=== PATIENT | male | born 1985 | race Caucasian/White ===

== ENCOUNTER 2016-09-12 17:51 | Inpatient (IN) | payer SELFPAY ==
--- NOTE | 2016-09-12 18:15 | EDM.PDOC ---
ED HPI Behavioral Health - General Chief Complaint: Behavioral/Psych Stated Complaint: Suicide attempt Time Seen by Provider: 09/12/16 18:05 Source of Information: Reports: Patient, Police, RN notes reviewed Exam Limitations: Reports: No limitations - History of Present Illness INITIAL COMMENTS - FREE TEXT/NARRATIVE: 30 year old male presents to the ED today via [place] [employer] after a suicide attempt about 3 hours ago. The patient reports that he has been struggling financially which has caused him a lot of stress. He has been depressed and today attempted to kill himself. He attempted to hang himself with an extension cord. He was unsuccessful because the extension cord broke. He denies any loss of consciousness as a result. He denies neck pain, difficulty swallowing, difficulty breathing, sore throat, headache. He has a red area to his neck but says it's not painful. He says during the attempt, he was thinking about his parents. After the cord broke, he decided to call his parents. His parents then notified law enforcement. They responded and brought him to the ED. The patient' s parents live in [facility]. According to the patient, he feels better after talking with his parents and says he is no longer a risk to himself. He says his parents are going to help move him back to [place] and will be here within the next week or two. They have also offered to help him financially which has alleviated some stress already. The patient admits to drinking a fifth of vodka today. He denies drug use. - Related Data Allergies Allergy/AdvReac Type Severity Reaction Status Date / Time No Known Allergies Allergy Verified 09/12/16 20:47 Home Medications: Home Meds Ibuprofen. 09/12/16 [History] Past Medical History - Past Health History Medical/Surgical History: Denies Medical/Surgical History Social & Family History - Tobacco Use Smoking Status *Q: Current Every Day Smoker Years of Tobacco use: 10 Packs/Tins Daily: 0.5 - Recreational Drug Use Recreational Drug Use: No ED ROS GENERAL - Review of Systems Review Of Systems: See Below Constitutional: Reports: no symptoms. Denies: fever, chills HEENT: Denies: Throat pain, Throat swelling Respiratory: Reports: No Symptoms, Other (no stridor ). Denies: Shortness of Breath, Cough Cardiovascular: Reports: No symptoms. Denies: Chest pain GI/Abdominal: Reports: No symptoms. Denies: Abdominal pain Neurological: Reports: No Symptoms. Denies: Headache Psychiatric: Reports: Depression, Suicidal ideation ED EXAM, BEHAVIORAL HEALTH - Physical Exam Exam: See Below Exam Limited By: No limitations General Appearance: alert, WD/WN, no apparent distress, other (Smells of ETOH) Eye Exam: bilateral eye: EOMI, PERRL Throat/Mouth: Normal inspection, Normal oropharynx, No airway compromise. No: Dysphagia, Inflammation, Perioral cyanosis Head: atraumatic, normocephalic Neck: supple, non-tender, full range of motion, other (red area to neck consistent with history of hanging attempt. No swelling. Minimal tenderness). No: lymphadenopathy (L), lymphadenopathy (R) Respiratory/Chest: no respiratory distress, lungs clear, normal breath sounds Cardiovascular: regular rate, rhythm Neurological: alert, normal mood/affect, normal cognition, oriented x 3 Psychiatric: alert, normal affect, normal cognition, oriented, depressed mood, suicidal plan, suicidal thoughts, other (patient is calm, cooperative, somewhat tearful, makes good eye contact. he articulates well and seems to be honest with his answers. ). No: threatening behavior COURSE, BEHAVIORAL HEALTH COMP - Course Vital Signs: Last Vital Signs Temp 97.8 F 09/12/16 18:02 Pulse 100 09/12/16 18:02 Resp BP 160/99 H 09/12/16 18:02 Pulse Ox 99 09/12/16 18:02 Orders, Labs, Meds: Active Orders 24 hr Category Date Time Status Patient Status [ADT] Routine ADT 09/12/16 19:44 Ordered Antiembolic Devices [RC] PER UNIT ROUTINE Care 09/12/16 20:42 Active Bedrest Bathroom Privileges [RC] ASDIRECTED Care 09/12/16 20:37 Active Notify Provider Consults [RC] ASDIRECTED Care 09/12/16 20:42 Active Peripheral IV Care [RC] . DIRECTED Care 09/12/16 19:47 Ordered Vital Signs [RC] PER UNIT ROUTINE Care 09/12/16 20:36 Active Consult to Physical Therapy [PT Evaluation and Cons 09/13/16 10:00 Active Treatment] [CONS] Routine Consult to Physician [CONS] Routine Cons 09/13/16 06:00 Active Consult to Purchasing Intern [CONS] Routine Cons 09/13/16 09:00 Active Regular Diet [DIET] Diet 09/12/16 Dinner Active Soft Tissue Neck w Cont [CT] Stat Exams 09/12/16 19:46 Ordered BMP [BASIC METABOLIC PANEL,BMP] [CHEM] DAILY Lab 09/13/16 05:00 Ordered BMP [BASIC METABOLIC PANEL,BMP] [CHEM] DAILY Lab 09/14/16 05:00 Ordered BMP [BASIC METABOLIC PANEL,BMP] [CHEM] DAILY Lab 09/15/16 05:00 Ordered CBC WITH AUTO DIFF [HEME] DAILY Lab 09/13/16 05:00 Ordered CBC WITH AUTO DIFF [HEME] DAILY Lab 09/14/16 05:00 Ordered CBC WITH AUTO DIFF [HEME] DAILY Lab 09/15/16 05:00 Ordered DRUG SCREEN, URINE [URCHEM] Stat Lab 09/12/16 18:14 Uncollected LIPID PANEL [CHEM] Routine Lab 09/13/16 05:00 Ordered MAGNESIUM [CHEM] DAILY Lab 09/13/16 05:00 Ordered MAGNESIUM [CHEM] DAILY Lab 09/14/16 05:00 Ordered MAGNESIUM [CHEM] DAILY Lab 09/15/16 05:00 Ordered UA W/MICROSCOPIC [URIN] Stat Lab 09/12/16 18:14 Uncollected Acetaminophen [Tylenol Solution] Med 09/12/16 20:52 Active 650 mg PO Q6H PRN Ketorolac [Toradol] Med 09/12/16 20:45 Ordered 30 mg IVPUSH Q6H Ketorolac [Toradol] Med 09/12/16 20:40 Pending 60 mg IVPUSH ONETIME ONE LORazepam [Ativan] Med 09/12/16 20:43 Active 1 mg IVPUSH Q8H PRN Lactated Ringers [Ringers, Lactated] 1,000 ml Med 09/12/16 20:45 Active IV ASDIRECTED Nicotine [Habitrol] Med 09/13/16 09:00 Active 21 mg TRDERM DAILY Pantoprazole [ProTONIX] Med 09/12/16 21:00 Active 40 mg PO BEDTIME Remove Patch Med 09/13/16 09:00 Active 1 ea TRDERM DAILY Sodium Chloride 0.9% [Saline Flush] Med 09/12/16 19:46 Ordered 10 ml FLUSH ASDIRECTED PRN Sodium Chloride 0.9% [Saline Flush] Med 09/12/16 19:51 Active 10 ml FLUSH ONETIME PRN Temazepam [Restoril] Med 09/12/16 20:42 Active 15 mg PO BEDTIME PRN methylPREDNISolone Sod Succ [Solu-MEDROL] Med 09/12/16 21:00 Active 125 mg IVPUSH Q12H One To One Therapy [] Routine Oth 09/12/16 20:51 Ordered Peripheral IV Insertion Adult [OM.PC] Stat Ot 09/12/16 19:46 Ordered Suicide Precautions [] Routine Oth 09/12/16 20:51 Ordered RADHA Hose [Antiembolic Hose] [OM.PC] Routine Oth 09/12/16 20:42 Ordered Code Status [Resuscitation Status] Routine Resus Stat 09/12/16 20:37 Ordered Medication Orders Acetaminophen (Tylenol Solution) 650 mg PO Q6H PRN PRN Reason: Pain (moderate 4-6) Lactated Ringer's (Ringers, Lactated) 1,000 mls @ 150 mls/hr IV ASDIRECTED FRANKLYN Ketorolac Tromethamine (Toradol) 60 mg IVPUSH ONETIME ONE Stop: 09/12/16 20:41 Ketorolac Tromethamine (Toradol) 30 mg IVPUSH Q6H FRANKLYN Lorazepam (Ativan) 1 mg IVPUSH Q8H PRN PRN Reason: Anxiety Methylprednisolone Sodium Succinate (Solu-Medrol) 125 mg IVPUSH Q12H FRANKLYN Miscellaneous Information (Remove Patch) 1 ea TRDERM DAILY FRANKLYN Nicotine (Habitrol) 21 mg TRDERM DAILY FRANKLYN Pantoprazole Sodium (Protonix) 40 mg PO BEDTIME FRANKLYN Sodium Chloride (Saline Flush) 10 ml FLUSH ASDIRECTED PRN PRN Reason: Keep Vein Open Last Admin: 09/12/16 20:18 Dose: 10 ml Sodium Chloride (Saline Flush) 10 ml FLUSH ONETIME PRN PRN Reason: IV FLUSH Last Admin: 09/12/16 20:09 Dose: 10 ml Temazepam (Restoril) 15 mg PO BEDTIME PRN PRN Reason: Insomnia Laboratory Tests 09/12/16 09/12/16 Range/Units 18:42 18:42 WBC 7.51 (4.23-9.07) K/mm3 RBC 4.48 L (4.63-6.08) M/mm3 Hgb 14.6 (13.7-17.5) gm/L Hct 44.2 (40.1-51.0) % MCV 98.7 H (79.0-92.2) fl MCH 32.6 H (25.7-32.2) pg MCHC 33.0 (32.2-35.5) g/dl RDW Std Deviation 49.1 H (35.1-43.9) fL Plt Count 320 (163-337) K/mm3 MPV 8.1 L (9.4-12.3) fl Neut % (Auto) 82.6 H (34.0-67.9) % Lymph % (Auto) 11.7 L (21.8-53.1) % [place] % (Auto) 4.0 L (5.3-12.2) % Eos % (Auto) 1.2 (0.8-7.0) Baso % (Auto) 0.4 (0.1-1.2) % Neut # (Auto) 6.20 H (1.78-5.38) K/mm3 Lymph # (Auto) 0.88 L (1.32-3.57) K/mm3 [place] # (Auto) 0.30 (0.30-0.82) K/mm3 Eos # (Auto) 0.09 (0.04-0.54) K/mm3 Baso # (Auto) 0.03 (0.01-0.08) K/mm3 Sodium 145 (136-145) mEq/L Potassium 4.0 (3.5-5.1) mEq/L Chloride 103 (98-107) mEq/L Carbon Dioxide 28 (21-32) mEq/L Anion Gap 18.0 H (5-15) BUN 12 (7-18) mg/dL Creatinine 1.0 (0.7-1.3) mg/dL Est Cr Clr Drug Dosing 119.85 mL/min Estimated GFR (MDRD) > 60 (>60) mL/min BUN/Creatinine Ratio 12.0 L (14-18) Glucose 134 H (74-106) mg/dL Calcium 8.8 (8.5-10.1) mg/dL Total Bilirubin 0.4 (0.2-1.0) mg/dL AST 52 H (15-37) U/L ALT 65 H (16-63) U/L Alkaline Phosphatase 62 (46-116) U/L Total Protein 8.1 (6.4-8.2) g/dl Albumin 4.6 (3.4-5.0) g/dl Globulin 3.5 gm/dL Albumin/Globulin Ratio 1.3 (1-2) TSH 3rd Generation 0.560 (0.358-3.74) uIU/mL Ethyl Alcohol 0.22 (0.00) gm% Medications Generic Name Dose Route Start Last Admin Trade Name Freq PRN Reason Stop Dose Admin Acetaminophen 650 mg 09/12/16 20:52 Tylenol Solution PO Q6H PRN Pain (moderate 4-6) Lactated Ringer's 1,000 mls @ 150 mls/hr 09/12/16 20:45 Ringers, Lactated IV ASDIRECTED FRANKLYN Ketorolac Tromethamine 60 mg 09/12/16 20:40 Toradol IVPUSH 09/12/16 20:41 ONETIME ONE Ketorolac Tromethamine 30 mg 09/12/16 20:45 Toradol IVPUSH Q6H FRANKLYN Lorazepam 1 mg 09/12/16 20:43 Ativan IVPUSH Q8H PRN Anxiety Methylprednisolone Sodium Succinate 125 mg 09/12/16 21:00 Solu-Medrol IVPUSH Q12H [facility] Miscellaneous Information 1 ea 09/13/16 09:00 Remove Patch TRDERM DAILY FRANKLYN Nicotine 21 mg 09/13/16 09:00 Habitrol TRDERM DAILY FRANKLYN Pantoprazole Sodium 40 mg 09/12/16 21:00 Protonix PO BEDTIME FRANKLYN Sodium Chloride 10 ml 09/12/16 19:46 09/12/16 20:18 Saline Flush FLUSH 10 ml ASDIRECTED PRN Administration Keep Vein Open Sodium Chloride 10 ml 09/12/16 19:51 09/12/16 20:09 Saline Flush FLUSH 10 ml ONETIME PRN Administration IV FLUSH Temazepam 15 mg 09/12/16 20:42 Restoril PO BEDTIME PRN Insomnia Discontinued Medications Generic Name Dose Route Start Last Admin Trade Name Freq PRN Reason Stop Dose Admin Iopamidol 80 ml 09/12/16 19:51 09/12/16 20:09 Isovue-300 (61%) IVPUSH 09/12/16 19:52 80 ml ONETIME ONE Administration Nicotine 14 mg 09/12/16 20:01 09/12/16 20:17 Habitrol TRDERM 09/12/16 20:02 14 mg ONETIME ONE Administration Re-Assessment/Re-Exam: Calls have been placed to [facility], [facility], [facility] and [facility] facilities. There are no psych beds available in the [facility]. I consulted our telemed Psychiatrist Dr. Tran. We discussed the patient's case, lack of support system, and disposition concerns since there are no psych beds. Dr. Tran recommends that we admit the patient here and he will see him via telemedicine tomorrow. He recommended observation admission. He recommended that we place the patient on an involuntary hold if the patient is noncompliant with this or attempts to leave the facility. He also recommends ETOH withdrawal protocol. The patient was made aware of this plan. I explained involuntary versus voluntary psych admissions. He is agreeable to stay in the hospital. He understands that noncompliance with result in an involuntary hold to ensure his safety. He is calm, cooperative, and agreeable. I spoke to Hospitalist semiconductor manufacturing technician Dr. Rubalcava who has accepted care of the patient. He will be admitted as inpatient as he meets criteria. 1940 Patient is reporting a numb sensation to the left side of his neck and discomfort with swallowing. He has no stridor or evidence of airway obstruction. Discussed with Dr. Peng who recommends CT soft tissue neck with IV contrast. 2100 CT of soft tissue neck read by [facility]. No acute findings. Will relay this information to the ICU as patient has been transferred out of the ED department. Departure - Departure Time of Disposition: 20:30 Disposition: Admitted As Inpatient 64 Condition: fair Clinical Impression: Suicide attempt Referrals: PCP,None [Primary Care Provider] - Forms: ED Department Discharge - My Orders Last 24 Hours: My Active Orders 09/12/16 18:14 DRUG SCREEN, URINE [URCHEM] Stat UA W/MICROSCOPIC [URIN] Stat 09/12/16 19:44 Patient Status [ADT] Routine 09/12/16 19:46 Soft Tissue Neck w Cont [CT] Stat Sodium Chloride 0.9% [Saline Flush] 10 ml FLUSH ASDIRECTED PRN Peripheral IV Insertion Adult [OM.PC] Stat 09/12/16 19:47 Peripheral IV Care [RC] . DIRECTED 09/12/16 19:51 Sodium Chloride 0.9% [Saline Flush] 10 ml FLUSH ONETIME PRN - Assessment/Plan Last 24 Hours: My Active Orders 09/12/16 18:14 DRUG SCREEN, URINE [URCHEM] Stat UA W/MICROSCOPIC [URIN] Stat 09/12/16 19:44 Patient Status [ADT] Routine 09/12/16 19:46 Soft Tissue Neck w Cont [CT] Stat Sodium Chloride 0.9% [Saline Flush] 10 ml FLUSH ASDIRECTED PRN Peripheral IV Insertion Adult [OM.PC] Stat 09/12/16 19:47 Peripheral IV Care [RC] . DIRECTED 09/12/16 19:51 Sodium Chloride 0.9% [Saline Flush] 10 ml FLUSH ONETIME PRN
[2016-09-12] MEDS ORDERED: Iopamidol 612 MG/ML 100 ML Bottle IVPUSH ONE (19:51)
[2016-09-12] MEDS ORDERED: Sodium Chloride 0.9% 10 ML Syringe FLUSH PRN (19:51)
[2016-09-12] MEDS ORDERED: Nicotine 14 MG/24 Hr Patch TRDERM ONE (20:01)
[2016-09-12] MEDS: Sodium Chloride 0.9% 10 ML Syringe FLUSH PRN (20:18)
--- NOTE | 2016-09-12 20:47 | PCM.HP ---
H&P History of Present Illness - General Date of Service: 09/12/16 Admit Problem/Dx: Admission Diagnosis/Problem Admission Diagnosis/Problem Suicide by drug overdose Source of Information: Patient, Provider History Limitations: Reports: No limitations - History of Present Illness Initial Comments - Free Text/Narative: 30 year old male who currently lives alone, presented after a failed suicide attempt. The patient tried to hang himself with an extension cord. There is no prior history of mental illness. There was no LOC, a CT of the neck appears to have no gross abnormalities; the patient however is complaining of a sore neck. He will be admitted for psychiatric treatment/monitoring, there are no available beds in [place] for psychiatric patients. An alcohol and drug screen were requested, and are pending. The patient has been admitted to the ICU as 1:1 monitored care. Onset of Symptoms: Reports: sudden Symptom Onset Date: 09/12/16 Duration of Symptoms: Reports: Hour(s):, Getting worse Location: Reports: neck Quality: Reports: Pressure Severity: moderate Improves with: Reports: Medication Worsens with: Reports: None Associated Symptoms: Reports: no other symptoms - Related Data Allergies/Adverse Reactions: Allergies Allergy/AdvReac Type Severity Reaction Status Date / Time No Known Allergies Allergy Verified 09/12/16 20:47 Home Medications: Home Meds Ibuprofen. 09/12/16 [History] Past Medical History - Past Health History Medical/Surgical History: Denies Medical/Surgical History Social & Family History - Tobacco Use Smoking Status *Q: Current Every Day Smoker Years of Tobacco use: 10 Packs/Tins Daily: 0.5 - Recreational Drug Use Recreational Drug Use: No H&P Review of Systems - Review of Systems: Review Of Systems: See Below General: Reports: no symptoms HEENT: Reports: dysphasia (mild). Denies: no symptoms Pulmonary: Reports: No Symptoms Cardiovascular: Reports: no symptoms Gastrointestinal: Reports: No symptoms Genitourinary: Reports: no symptoms Musculoskeletal: Reports: neck pain Skin: Reports: no symptoms Psychiatric: Reports: depression, anxiety Neurological: Reports: No Symptoms Hematologic/Lymphatic: Reports: no symptoms Immunologic: Reports: no symptoms Exam - Exam Exam: See Below - Vital Signs Vital Signs: Last Vital Signs Temp 36.6 C 09/12/16 18:02 Pulse 100 09/12/16 18:02 Resp BP 160/99 H 09/12/16 18:02 Pulse Ox 99 09/12/16 18:02 Weight: 81.647 kg - Exam Quality Assessment: supplemental oxygen, DVT prophylaxis General: alert, oriented, cooperative HEENT: Conjunctiva clear, Nares patent, Normal nasal septum, Pupils equal, Pupils reactive, TMs clear Neck: supple, trachea midline Lungs: Normal respiratory effort Cardiovascular: regular rate, tachycardia Abdomen: normal bowel sounds, soft (Male) Exam: Deferred Rectal (Males) Exam: Deferred Back Exam: normal inspection Extremities: normal inspection Skin: warm Neurological: cranial nerves intact Neuro Extensive - Mental Status: alert, oriented x3 Neuro Extensive - Motor, Sensory, Reflexes: CN II-XII intact Psychiatric: alert, depressed - Patient Data Result Diagrams: 09/13/16 05:43 09/13/16 05:43 *Q Meaningful Use (ADM) - VTE *Q VTE Criteria *Q: - Stroke *Q Stroke Criteria *Q: - AMI *Q AMI Criteria *Q: - Problem List (1) Depression SNOMED Code(s): 13162779 ICD Code: F32.9 - MAJOR DEPRESSIVE DISORDER, SINGLE EPISODE, UNSPECIFIED Status: Acute Current Visit: Yes (2) Anxiety SNOMED Code(s): 68000972 ICD Code: F41.9 - ANXIETY DISORDER, UNSPECIFIED Status: Acute Current Visit: Yes (3) EtOH dependence SNOMED Code(s): 78900760, 539854622 ICD Code: F10.20 - ALCOHOL DEPENDENCE, UNCOMPLICATED Status: Acute Current Visit: Yes (4) Suicide attempt SNOMED Code(s): 33910389 ICD Code: T14.91 - SUICIDE ATTEMPT Status: Acute Current Visit: Yes Problem List Initiated/Reviewed/Updated: Yes Orders Last 24hrs: Active Orders 24 hr Category Date Time Status Antiembolic Devices [RC] PER UNIT ROUTINE Care 09/12/16 20:42 Ordered Bedrest Bathroom Privileges [RC] ASDIRECTED Care 09/12/16 20:37 Ordered Notify Provider Consults [RC] ASDIRECTED Care 09/12/16 20:42 Ordered Peripheral IV Care [RC] . DIRECTED Care 09/12/16 19:47 Active Vital Signs [RC] PER UNIT ROUTINE Care 09/12/16 20:36 Ordered Consult to Physical Therapy [PT Evaluation and Cons 09/13/16 10:00 Ordered Treatment] [CONS] Routine Consult to Physician [CONS] Routine Cons 09/13/16 06:00 Ordered Consult to Social Science Manager [CONS] Routine Cons 09/13/16 09:00 Ordered Soft Tissue Neck w Cont [CT] Stat Exams 09/12/16 19:46 Taken Ketorolac [Toradol] Med 09/12/16 20:45 Ordered 30 mg IVPUSH Q6H Ketorolac [Toradol] Med 09/12/16 20:40 Once 60 mg IVPUSH ONETIME ONE LORazepam [Ativan] Med 09/12/16 20:43 Ordered 1 mg IVPUSH Q8H PRN Lactated Ringers @ 100 MLS/HR(1000ml Bag) Med 09/12/16 20:45 Ordered Lactated Ringers [Ringers, Lactated] 1,000 ml IV ASDIRECTED Nicotine [Habitrol] Med 09/13/16 09:00 Ordered 21 mg TRDERM DAILY Pantoprazole [ProTONIX] Med 09/12/16 21:00 Ordered 40 mg PO BEDTIME Sodium Chloride 0.9% [Saline Flush] Med 09/12/16 19:46 Active 10 ml FLUSH ASDIRECTED PRN Sodium Chloride 0.9% [Saline Flush] Med 09/12/16 19:51 Active 10 ml FLUSH ONETIME PRN Temazepam [Restoril] Med 09/12/16 20:42 Ordered 15 mg PO BEDTIME PRN methylPREDNISolone Sod Succ [Solu-MEDROL] Med 09/12/16 20:45 Ordered 125 mg IVPUSH Q12H Peripheral IV Insertion Adult [OM.PC] Stat Oth 09/12/16 19:46 Ordered RADHA Hose [Antiembolic Hose] [OM.PC] Routine Oth 09/12/16 20:42 Ordered Code Status [Resuscitation Status] Routine Resus Stat 09/12/16 20:37 Ordered Medication Orders Ketorolac Tromethamine (Toradol) 60 mg IVPUSH ONETIME ONE Stop: 09/12/16 20:41 Sodium Chloride (Saline Flush) 10 ml FLUSH ASDIRECTED PRN PRN Reason: Keep Vein Open Last Admin: 09/12/16 20:18 Dose: 10 ml Sodium Chloride (Saline Flush) 10 ml FLUSH ONETIME PRN PRN Reason: IV FLUSH Last Admin: 09/12/16 20:09 Dose: 10 ml Assessment/Plan Comment:: Impression: Depression/Anxiety Suicide attempt, unsuccessful hanging without LOC CT of neck without signs of trauma Hypertension currently, probable ETOH withdrawal Tobacco dependence Plan: ICU with close monitoring Start Norvacs q HS Hydralazine prn CIWA protocol HTN meds as needed Habitrol Psych consult Substance Abuse Consult DVT/GI prophylaxis
[2016-09-12] MEDS ORDERED: Ketorolac 30 MG/ML SDV IVPUSH ONE ×2 (21:00→21:45)
[2016-09-12] MEDS: Lactated Ringers 1,000 ML IV SCH (21:50)
[2016-09-12] MEDS: methylPREDNISolone Sodium Succinate 125 MG/2 ML SDV IVPUSH SCH (21:51)
[2016-09-12] MEDS: Temazepam 15 MG Cap PO PRN (21:52)
[2016-09-12] MEDS: amLODIPine 5 MG Tab PO SCH (21:52)
[2016-09-12] MEDS: Pantoprazole 40 MG Tab.CR PO SCH (21:52)
[2016-09-13] MEDS: Ketorolac 30 MG/ML SDV IVPUSH SCH ×4 (02:53→20:56)
[2016-09-13] MEDS: LORazepam 2 MG/ML MDV IVPUSH PRN ×2 (02:54→18:23)
[2016-09-13] MEDS: Lactated Ringers 1,000 ML IV SCH (04:32)
[2016-09-13] MEDS ORDERED: QUEtiapine 25 MG Tab PO ONE (09:04)
[2016-09-13] MEDS ORDERED: LORazepam 1 MG Tab PO ONE (09:06)
[2016-09-13] MEDS: FLUoxetine 20 MG Cap PO SCH (09:52)
[2016-09-13] MEDS: methylPREDNISolone Sodium Succinate 125 MG/2 ML SDV IVPUSH SCH ×2 (09:54→20:56)
[2016-09-13] MEDS: Nicotine 21 MG/24 Hr Patch TRDERM SCH (09:54)
[2016-09-13] MEDS: hydrALAZINE 20 MG/ML SDV IVPUSH PRN ×2 (10:03→16:24)
[2016-09-13] MEDS ORDERED: Magnesium Sulfate/Water 2 GM in Premix Bag 1 BAG IV ONE (10:18)
[2016-09-13] MEDS ORDERED: Metoprolol Tartrate 25 MG Tab PO ONE (12:30)
--- NOTE | 2016-09-13 12:40 | CT ---
CT soft tissue neck Technique: Multiple axial sections through the neck were obtained. Intravenous contrast was utilized. Reconstructed coronal and sagittal images were reviewed. Findings: Vasculature appears to have normal enhancement. Thyroid gland is normal. Submandibular and parotid salivary glands are within normal limits. Paranasal sinuses are clear. No soft tissue hematoma is identified. Visualized lung apices are clear. Sagittal views shows no abnormal subluxation within the cervical spine. Scoliosis is noted. Impression: 1. Scoliosis. 2. CT study of the neck is otherwise unremarkable. Agree with preliminary report issued by [facility] (preliminary report dictated on 09/12/16, 9:51 PM Central Time) Diagnostic code #2
--- NOTE | 2016-09-13 14:12 | PCM.PN ---
- General Info Date of Service: 09/13/16 Functional Status: Reports: tolerating diet, ambulating, urinating - Review of Systems General: Reports: No Symptoms HEENT: Reports: no symptoms Pulmonary: Reports: no symptoms Cardiovascular: Reports: No Symptoms Gastrointestinal: Reports: No symptoms Genitourinary: Reports: no symptoms Musculoskeletal: Reports: no symptoms Skin: Reports: no symptoms Neurological: Reports: No Symptoms Psychiatric: Reports: depression, anxiety, cravings (tobacco) - Patient Data Vitals - most recent: Last Vital Signs Temp 36.6 C 09/13/16 12:00 Pulse 103 H 09/13/16 12:30 Resp 18 09/13/16 12:00 BP 154/94 H 09/13/16 12:30 Pulse Ox 100 09/13/16 12:00 Weight - most recent: 78.471 kg I&O - last 24 hours: Intake & Output 09/12/16 09/13/16 09/13/16 22:59 06:59 14:59 Intake Total 800 1313 1440 Output Total 450 725 Balance 694 411 4604 Lab Results last 24 hrs: Laboratory Results - last 24 hr 09/12/16 09/13/16 09/13/16 Range/Units 21:20 05:43 05:43 WBC 6.08 (4.23-9.07) K/mm3 RBC 4.33 L (4.63-6.08) M/mm3 Hgb 14.1 (13.7-17.5) gm/L Hct 42.3 (40.1-51.0) % MCV 97.7 H (79.0-92.2) fl MCH 32.6 H (25.7-32.2) pg MCHC 33.3 (32.2-35.5) g/dl RDW Std Deviation 46.8 H (35.1-43.9) fL Plt Count 301 (163-337) K/mm3 MPV 8.5 L (9.4-12.3) fl Neut % (Auto) 93.4 H (34.0-67.9) % Lymph % (Auto) 5.6 L (21.8-53.1) % Morrill % (Auto) 0.8 L (5.3-12.2) % Eos % (Auto) 0 L (0.8-7.0) Baso % (Auto) 0.2 (0.1-1.2) % Neut # (Auto) 5.68 H (1.78-5.38) K/mm3 Lymph # (Auto) 0.34 L (1.32-3.57) K/mm3 Morrill # (Auto) 0.05 L (0.30-0.82) K/mm3 Eos # (Auto) 0.00 L (0.04-0.54) K/mm3 Baso # (Auto) 0.01 (0.01-0.08) K/mm3 Manual Slide Review Abnormal smear Sodium 140 (136-145) mEq/L Potassium 4.3 (3.5-5.1) mEq/L Chloride 103 (98-107) mEq/L Carbon Dioxide 26 (21-32) mEq/L Anion Gap 15.3 H (5-15) BUN 16 (7-18) mg/dL Creatinine 0.9 (0.7-1.3) mg/dL Est Cr Clr Drug Dosing 130.79 mL/min Estimated GFR (MDRD) > 60 (>60) mL/min BUN/Creatinine Ratio 17.8 (14-18) Glucose 145 H (74-106) mg/dL Calcium 8.9 (8.5-10.1) mg/dL Magnesium 1.9 (1.8-2.4) mg/dl Triglycerides 33 (<150) mg/dL Cholesterol 196 (<200) mg/dL LDL Cholesterol Direct 78 (<100) mg/dL HDL Cholesterol 103.0 H (40-59) mg/dL Urine Opiates Screen Negative (NEGATIVE) Ur Buprenorphine Scrn Negative (NEGATIVE) Ur Oxycodone Screen Negative (NEGATIVE) Urine Methadone Screen Negative (NEGATIVE) Ur Propoxyphene Screen Negative (NEGATIVE) Ur Barbiturates Screen Negative (NEGATIVE) Ur Tricyclics Screen Negative (NEGATIVE) Ur Phencyclidine Scrn Negative (NEGATIVE) Ur Amphetamine Screen Negative (NEGATIVE) U Methamphetamines Scrn Negative (NEGATIVE) U Benzodiazepines Scrn Negative (NEGATIVE) U Cocaine Metab Screen Negative (NEGATIVE) U Marijuana (THC) Screen Negative (NEGATIVE) Med Orders - Current: Current Medications Acetaminophen (Tylenol Solution) 650 mg PO Q6H PRN PRN Reason: Pain (moderate 4-6) Amlodipine Besylate (Norvasc) 5 mg PO BEDTIME FRANKLYN Last Admin: 09/12/16 21:52 Dose: 5 mg Fluoxetine HCl (Prozac) 20 mg PO DAILY [facility] Last Admin: 09/13/16 09:52 Dose: 20 mg Hydralazine HCl (Apresoline) 20 mg IVPUSH Q6H PRN PRN Reason: Hypertension Last Admin: 09/13/16 10:03 Dose: 20 mg Lactated Ringer's (Ringers, Lactated) 1,000 mls @ 150 mls/hr IV ASDIRECTED FRANKLYN Last Admin: 09/13/16 04:32 Dose: 150 mls/hr Ketorolac Tromethamine (Toradol) 30 mg IVPUSH Q6H FRANKLYN Stop: 09/13/16 21:01 Last Admin: 09/13/16 09:53 Dose: 30 mg Lorazepam (Ativan) 1 mg IVPUSH Q8H PRN PRN Reason: Anxiety Last Admin: 09/13/16 02:54 Dose: 1 mg Methylprednisolone Sodium Succinate (Solu-Medrol) 125 mg IVPUSH Q12H [facility] Last Admin: 09/13/16 09:54 Dose: 125 mg Metoprolol Tartrate (Lopressor) 25 mg PO Q12HR [facility] Miscellaneous Information (Remove Patch) 1 ea TRDERM DAILY [facility] Last Admin: 09/13/16 09:55 Dose: 1 ea Nicotine (Habitrol) 21 mg TRDERM DAILY [facility] Last Admin: 09/13/16 09:54 Dose: 21 mg Pantoprazole Sodium (Protonix) 40 mg PO BEDTIME [facility] Last Admin: 09/12/16 21:52 Dose: 40 mg Quetiapine Fumarate (Seroquel) 25 mg PO BEDTIME [facility] Sodium Chloride (Saline Flush) 10 ml FLUSH ASDIRECTED PRN PRN Reason: Keep Vein Open Last Admin: 09/12/16 20:18 Dose: 10 ml Sodium Chloride (Saline Flush) 10 ml FLUSH ONETIME PRN PRN Reason: IV FLUSH Last Admin: 09/12/16 20:09 Dose: 10 ml Temazepam (Restoril) 15 mg PO BEDTIME PRN PRN Reason: Insomnia Last Admin: 09/12/16 21:52 Dose: 15 mg Discontinued Medications Magnesium Sulfate 2 gm/ Premix 50 mls @ 25 mls/hr IV ONETIME ONE Stop: 09/13/16 12:17 Last Admin: 09/13/16 12:27 Dose: 25 mls/hr Iopamidol (Isovue-300 (61%)) 80 ml IVPUSH ONETIME ONE Stop: 09/12/16 19:52 Last Admin: 09/12/16 20:09 Dose: 80 ml Ketorolac Tromethamine (Toradol) 60 mg IVPUSH ONETIME ONE Stop: 09/12/16 21:01 Last Admin: 09/12/16 21:51 Dose: 60 mg Ketorolac Tromethamine (Toradol) 60 mg IVPUSH ONETIME ONE Stop: 09/12/16 21:46 Last Admin: 09/12/16 22:01 Dose: Not Given Lorazepam (Ativan) 2 mg PO ONETIME ONE Stop: 09/13/16 09:07 Last Admin: 09/13/16 09:51 Dose: 2 mg Metoprolol Tartrate (Lopressor) 25 mg PO ONETIME ONE Stop: 09/13/16 12:31 Last Admin: 09/13/16 12:30 Dose: 25 mg Nicotine (Habitrol) 14 mg TRDERM ONETIME ONE Stop: 09/12/16 20:02 Last Admin: 09/12/16 20:17 Dose: 14 mg Quetiapine Fumarate (Seroquel) 25 mg PO ONETIME ONE Stop: 09/13/16 09:05 Last Admin: 09/13/16 09:51 Dose: 25 mg - Exam Quality Assessment: DVT prophylaxis General: alert, oriented, cooperative, mild distress HEENT: Pupils equal, Pupils reactive, EOMI Neck: supple, trachea midline, no JVD Lungs: Normal respiratory effort Cardiovascular: Regular Rate, Tachycardia Abdomen: bowel sounds present, soft, no tenderness, no distension (Male) Exam: Deferred Back Exam: normal inspection Extremities: normal pulses Skin: warm Neurological: normal gait, normal speech Psy/Mental Status: alert, anxious, depressed, withdrawal symptoms - Problem List & Annotations (1) Anxiety SNOMED Code(s): 18671892 Code(s): F41.9 - ANXIETY DISORDER, UNSPECIFIED Status: Acute Current Visit: Yes (2) Depression SNOMED Code(s): 54228765 Code(s): F32.9 - MAJOR DEPRESSIVE DISORDER, SINGLE EPISODE, UNSPECIFIED Status: Acute Current Visit: Yes (3) EtOH dependence SNOMED Code(s): 23932259, 111895258 Code(s): F10.20 - ALCOHOL DEPENDENCE, UNCOMPLICATED Status: Acute Current Visit: Yes (4) Suicide attempt SNOMED Code(s): 98447462 Code(s): T14.91 - SUICIDE ATTEMPT Status: Acute Current Visit: Yes - Problem List Review Problem List Initiated/Reviewed/Updated: Yes - My Orders Last 24 Hours: My Active Orders 09/12/16 20:36 Vital Signs [RC] Q4HR 09/12/16 20:37 Bedrest Bathroom Privileges [RC] .PRN Code Status [Resuscitation Status] Routine 09/12/16 20:42 Antiembolic Devices [RC] 10,20 Notify Provider Consults [RC] ASDIRECTED Temazepam [Restoril] 15 mg PO BEDTIME PRN RADHA Hose [Antiembolic Hose] [OM.PC] Routine 09/12/16 20:43 LORazepam [Ativan] 1 mg IVPUSH Q8H PRN 09/12/16 20:45 Lactated Ringers [Ringers, Lactated] 1,000 ml IV ASDIRECTED 09/12/16 20:51 One To One Therapy [BH] Routine Suicide Precautions BH [BH] Routine 09/12/16 20:52 Acetaminophen [Tylenol Solution] 650 mg PO Q6H PRN 09/12/16 20:54 hydrALAZINE [Apresoline] 20 mg IVPUSH Q6H PRN 09/12/16 21:00 Pantoprazole [ProTONIX] 40 mg PO BEDTIME methylPREDNISolone Sod Succ [Solu-MEDROL] 125 mg IVPUSH Q12H 09/12/16 21:15 amLODIPine [Norvasc] 5 mg PO BEDTIME 09/12/16 Dinner Regular Diet [DIET] 09/13/16 03:00 Ketorolac [Toradol] 30 mg IVPUSH Q6H 09/13/16 06:00 Consult to Physician [CONS] Routine 09/13/16 06:29 CIWAA Assessment [RC] Q2HR 09/13/16 09:00 Consult to [facility] [CONS] Routine Nicotine [Habitrol] 21 mg TRDERM DAILY Remove Patch 1 ea TRDERM DAILY 09/13/16 10:00 Consult to Physical Therapy [PT Evaluation and Treatment] [CONS] Routine 09/13/16 10:16 Consult for Substance Abuse [CONS] Routine 09/13/16 21:00 Metoprolol Tartrate [Lopressor] 25 mg PO Q12HR 09/14/16 05:00 BMP [BASIC METABOLIC PANEL,BMP] [CHEM] DAILY CBC WITH AUTO DIFF [HEME] DAILY MAGNESIUM [CHEM] DAILY 09/15/16 05:00 BMP [BASIC METABOLIC PANEL,BMP] [CHEM] DAILY CBC WITH AUTO DIFF [HEME] DAILY MAGNESIUM [CHEM] DAILY - Plan Plan:: Impression: ETOH withdrawal/ETOH dependence No Hx of ETOH withdrawal SZ Suicide attempt with hanging Anxiety/depression Plan: Will not pursue outpatient AA at this time, will proceed with inpatient commitment BB and alpha miya with SANS response to withdrawal Continue CIWA Adjust baseline oral Librium 25 mg QID, ATC IV benzo based on CIWA CXR and IS with increase in WBCs DVT/GI prophylaxis
[2016-09-13] MEDS: cloNIDine 0.1 MG Tab PO SCH ×2 (18:31→20:58)
[2016-09-13] MEDS ORDERED: cloNIDine 0.1 MG Tab ONE (18:32)
[2016-09-13] MEDS: amLODIPine 5 MG Tab PO SCH (20:57)
[2016-09-13] MEDS: Pantoprazole 40 MG Tab.CR PO SCH (20:57)
[2016-09-13] MEDS: Metoprolol Tartrate 25 MG Tab PO SCH (20:57)
[2016-09-13] MEDS ORDERED: chlordiazePOXIDE 10 MG Cap PO SCH (21:00)
[2016-09-13] MEDS: QUEtiapine 25 MG Tab PO SCH (21:11)
--- NOTE | 2016-09-14 00:08 | CONS ---
CONSULTING PHYSICIAN: Tim Lunsford LAC DATE OF CONSULTATION: 09/13/2016 TIME SEEN: 10:02 p.m. REASON FOR CONSULTATION: The patient is a 30-year-old male, who was admitted to the [facility] ICU on 09/12/2016 after a suicide attempt. He subsequently developed alcohol withdrawal. An Alcohol and Drug consultation was requested by his Medical Treatment Team. SOURCE OF INFORMATION: A DARYL was signed to speak with the patient's parents and collateral information was obtained, the patient's self report, patient hospital records. HISTORY OF PRESENT ILLNESS: The patient was born and raised in [place], [place], by his biological parents, who are still together. He has 1 younger brother. The patient graduated from [employer] in 2002, where he maintained a 3.4 grade point average. After he graduated from high school, he attended technical college for 2 years and graduated with an AA degree in architectural drafting. He states he began his drinking career while attending [employer] and he was drinking 2 to 3 nights a week typically sharing several pitchers of beer with friends. 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 During that time, he states he was drinking 3 to 4 nights a week, typically anywhere from a pitcher of beer to himself to 10 to 12 beers plus 4 to 5 shots of vodka. 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 He also worked at [employer] for a year and a half. During this time, he was drinking 3 to 4 nights a week, typically 10 to 12 Odd Lights and still 4 to 5 shots of vodka. Around this time, he also began to go on week and a half binges, where he would drink straight vodka every day. More typically, within the last 3 years, he has been drinking 3 to 5 nights a week, typically two to three 1.75 bottles of vodka. He began working at [employer] in the last 2 years and states his drinking has escalated. He has been going to approximately three to four 1.75 bottles of vodka a week. The patient reports that in the last week, he drank four 1.75 bottles of vodka. He reports that he is only able to stay sober for 1 day. The patient is denying that anyone in his family has a problem with drugs or alcohol. He admits pass outs and blackouts and experiences moderate to severe withdrawals; however, the patient has not stopped drinking long enough to really know the extent of his withdrawals. The patient verbalizes that he would have never tried to kill himself if he was sober; however, when he drinks, he does "dumb stuff." The patient is reporting that he has several stressors in his life that are causing him to drink more, employment, finances, and his roommate just moved out. He states that relationships are not a stressor to him. He did have a girlfriend at 1 time, but they broke up and he is "over it." DSM-5 CRITERIA: The patient meets DSM-5 criteria for the following diagnoses: 1. F10.20, alcohol use disorder, severe. 2. F10.239, alcohol withdrawal without perceptual disturbance. 3. F17.200, tobacco use disorder, severe. ASAM DIMENSIONS: 1. Dimension 1: Score 2. The patient has some difficulty tolerating and coping with withdrawal discomfort, but responds to support and treatment. 2. Dimension 2: Score 0. The patient displays full functioning with good ability to cope with physical discomfort and no medical issues at present. 3. Dimension 3: Score 2. The patient has thoughts of suicide. He appears to have a mental health diagnosis. 4. Dimension 4: Score 3. The patient is in the pre-contemplation stage of change. He has minimal awareness of the negative impact of his addiction. 5. Dimension 5: Score 3. The patient has little recognition and understanding of relapse and recidivism issues and displays a high vulnerability for further substance use or mental health problems. 6. Dimension 6: Score 3. The patient is no longer engaged in structured meaningful activity. He is away from any kind of support system. ASSESSMENT SUMMARY: The patient appears to be a nice young man, who has been drinking dependently for the past 5 to 10 years. He presents in stage II alcoholism. Further assessment is needed to determine if his alcoholism is exacerbating a mental health condition or if the mental health condition is exacerbating the alcoholism. In his early 20s, he aspired to be an lay out and detail drafter. 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 He verbalizes that he still holds the dream to be an actimize architect, but either something in his life or his alcoholism has held him back. Collateral report from parents indicates that they have never seen a problem with the patient and that this is the first time they were aware that there was ever an issue with either substance abuse or mental health. The patient verbalizes that he needs assistance to achieve sobriety. We talked about all treatment options that were available to him. The patient is aware that a petition for involuntary commitment will be exercised, as he is demonstrating that he is a danger to himself and he is verbalizing his inability to stop drinking without professional intervention. The patient, and I spoke with the patient's parents and they are requesting treatment as well. They are reporting that they will come and move the patient back to [place] at the end of the month. I spoke with , CIERA, and Dr. Rubalcava regarding the patient's status and we are in agreement that the petition for involuntary commitment is necessary. RECOMMENDATION: The patient meets ASAM criteria for level 3.7, medically monitored high- intensity inpatient treatment. A petition for involuntary commitment will be exercised for the [facility]. JULIA /[id number]
[2016-09-14] MEDS: methylPREDNISolone Sodium Succinate 125 MG/2 ML SDV IVPUSH SCH ×2 (08:43→08:46)
[2016-09-14] MEDS: FLUoxetine 20 MG Cap PO SCH (08:45)
[2016-09-14] MEDS: Metoprolol Tartrate 25 MG Tab PO SCH ×2 (08:45→20:52)
[2016-09-14] MEDS: cloNIDine 0.1 MG Tab PO SCH ×2 (08:45→20:53)
[2016-09-14] MEDS: Nicotine 21 MG/24 Hr Patch TRDERM SCH (08:45)
[2016-09-14] MEDS: LORazepam 2 MG/ML MDV IVPUSH PRN ×4 (09:06→17:49)
--- NOTE | 2016-09-14 09:46 | CR ---
Chest: 2 views of the chest were obtained. Comparison: No previous study. Heart size and mediastinum are normal. Lungs are clear. Minimal upper thoracic scoliosis is seen. Impression: 1. Incidental finding. Nothing acute is identified on 2 view chest x-ray. Diagnostic code #1
--- NOTE | 2016-09-14 10:53 | CONS ---
CONSULTING PHYSICIAN: Abhishek Tran MD DATE OF CONSULTATION: 09/13/2016 IDENTIFICATION: The patient is a 30-year-old male, who was admitted to the MICU on 09/12/2016 secondary to a suicide attempt in the phase of alcohol intoxication. He is seen for psychiatric evaluation. CHIEF COMPLAINT: "I tried committing suicide. It is something very stupid." HISTORY OF PRESENT ILLNESS: The patient is a 30-year-old male, who denies any previous psychiatric history, who states that he had been "just stressed" quite a bit after his roommate suddenly moved out and left him having to deal with the whole monthly rent by himself. The patient is employed as a cook in the [employer], but he states on his current salary, was really hard for him to make rent on his own. He states that he had been worrying about this having racing thoughts and ruminations and then he was drinking pretty heavily and got real depressed and then he tried to hang himself up. He states that he is "not really depressed" at this point, "just stressed." He does state that he is a little down and he states he gets more down when he drinks. He states he has been drinking pretty heavily lately. He has been drinking about 6 beers a day, 5 days a week, and then on when he tried to hang himself he had drank half bottle of vodka plus beer. At this point in time, the patient states that he felt like what he did was pretty stupid. He denies any suicidal or homicidal. He denies any psychotic, delusional, or paranoid symptoms. He states he has a financial stressors and dealing also with some car issues that have been bringing him down. He states "I am not going to drink anymore" and he plans on moving back to [place], [place], where he is originally from because his parents are very supportive of him and they are very worried about him. He states "I just gotta get back to [place], my parents will help me out a lot." He is open to try medications to help with his worries and he states that he is open to having resources put in place to help him not drink anymore. He is samantha for safety while on the unit. MEDICATIONS: At the time of presentation: 1. Toradol. 2. Protonix. Both of these medications were started after admission. ALLERGIES: No known drug allergies. PAST MEDICAL HISTORY: Hypertension. REVIEW OF SYSTEMS: Aside from cardiovascular all other major organ systems are negative at this point in time for acute difficulties or complications. FAMILY PSYCHIATRIC AND CD HISTORY: The patient denies past psychiatric and CD history essentially negative. The patient denies any previous psychiatric hospitalizations or chemical dependency treatments. Denies any previous suicide attempts. Denies any self-injurious behaviors. Never been on psychiatric medications in the past. He reports 1 DWI in and he states his longest sobriety was for 1 year in after the DWI, because he was court ordered to stay sober and they were monitoring him. SOCIAL HISTORY: The patient is born and raised in [place], [place], he has also 2 siblings and 1 younger brother. The patient's parents were throughout his childhood and adolescence. He has been living in [place] for the past 3.5 years. He is working as a cook at [employer]. He has never been , not involved in any relationships, does not have any children. He lives by himself in [place]. Denies having any guns at his house or other weapons. He denies any prior service or any current legal difficulties. He was raised [place]. He enjoys playing and watching sporting activities. MENTAL STATUS EXAM: The patient is a 30-year-old soft-spoken white male, in no apparent distress. Speech is shortened duration of utterance, increased latency of response. Psychomotor activity is within normal limits. There is no abnormal motor movements or tics observed. Gait and station are not observed. This patient is seated on his bed during the interview. Mood is "stressed." Affect is restricted, but cooperative overall for the purposes of the inpatient psychiatric consult. There is no behavioral or stated evidence of acute suicidal or homicidal ideation or acute psychotic, delusional, paranoid symptoms. Thought processes are significant for racing thoughts and ruminations, however, there is no acute manic symptoms or loose associations evident. Judgment and insight appear unimpaired at this point in time. Motivation for help appears fair to good. VITAL SIGNS: Blood pressure 158/99, pulse 70, respirations 18, temperature 97.9 degrees. IMPRESSION: Miller I: 1. Alcohol dependence, F10.20. 2. Depression, not otherwise specifies, F32.9. 3. Anxiety disorder, not otherwise specifies, F41.9. 4. Rule out major depressive disorder. Miller II: None. Miller III: 1. Hypertension. 2. Superficial flash injuries and swelling around neck secondary to hanging attempt. Miller IV: Severe. Miller V: 55. PLAN: 1. Sobriety. 2. AA rep to visit the patient. 3. Pastoral guidance. 4. Chemical dependency consult. 5. Begin Seroquel 25 mg at bedtime to help with racing thoughts, ruminations, sleep initiation, and maintenance and anxiety reduction. 6. Begin Prozac 20 mg q.a.m. also for anxiety reduction and mood enhancement. 7. Give Ativan 2 mg 1 time now to help with high blood pressure then place the patient on CIWA protocol if not already done. 8. Thiamine and folic acid to be given daily while the patient remains on the unit. 9. When the patient is medically stable, if there are no changes psychiatrically while on the unit, he will be safe to be discharged back to community. 10.We will continue follow up with the patient on an as needed basis while he remains on the medical unit. 11.Recommend the patient follow up with Outpatient Psychiatry when he is discharged back to the community, to assess his overall function and efficacy of his newly initiated psychiatric medication regimen. 12.Crisis plan is in place. JULIA /[id number]
--- NOTE | 2016-09-14 10:57 | PCM.PN ---
- General Info Date of Service: 09/14/16 Functional Status: Reports: tolerating diet, ambulating, urinating - Review of Systems General: Reports: No Symptoms HEENT: Reports: no symptoms Pulmonary: Reports: no symptoms Cardiovascular: Reports: Palpitations Gastrointestinal: Reports: No symptoms Genitourinary: Reports: no symptoms Musculoskeletal: Reports: no symptoms Skin: Reports: no symptoms Neurological: Reports: Tremors Psychiatric: Reports: depression, anxiety - Patient Data Vitals - most recent: Last Vital Signs Temp 36.7 C 09/14/16 08:00 Pulse 68 09/14/16 08:45 Resp 18 09/14/16 08:00 BP 126/78 09/14/16 08:45 Pulse Ox 99 09/14/16 08:00 Weight - most recent: 79.878 kg I&O - last 24 hours: Intake & Output 09/13/16 09/14/16 09/14/16 22:59 06:59 14:59 Intake Total 2090 0 Output Total 600 800 Balance 1490 -800 Lab Results last 24 hrs: Laboratory Results - last 24 hr 09/14/16 09/14/16 Range/Units 04:55 04:55 WBC 10.43 H (4.23-9.07) K/mm3 RBC 3.91 L (4.63-6.08) M/mm3 Hgb 12.8 L (13.7-17.5) gm/L Hct 38.5 L (40.1-51.0) % MCV 98.5 H (79.0-92.2) fl MCH 32.7 H (25.7-32.2) pg MCHC 33.2 (32.2-35.5) g/dl RDW Std Deviation 47.2 H (35.1-43.9) fL Plt Count 288 (163-337) K/mm3 MPV 8.8 L (9.4-12.3) fl Neut % (Auto) 93.2 H (34.0-67.9) % Lymph % (Auto) 3.3 L (21.8-53.1) % [place] % (Auto) 3.3 L (5.3-12.2) % Eos % (Auto) 0 L (0.8-7.0) Baso % (Auto) 0.1 (0.1-1.2) % Neut # (Auto) 9.73 H (1.78-5.38) K/mm3 Lymph # (Auto) 0.34 L (1.32-3.57) K/mm3 [place] # (Auto) 0.34 (0.30-0.82) K/mm3 Eos # (Auto) 0.00 L (0.04-0.54) K/mm3 Baso # (Auto) 0.01 (0.01-0.08) K/mm3 Manual Slide Review Abnormal smear Sodium 139 (136-145) mEq/L Potassium 4.3 (3.5-5.1) mEq/L Chloride 105 (98-107) mEq/L Carbon Dioxide 24 (21-32) mEq/L Anion Gap 14.3 (5-15) BUN 21 H (7-18) mg/dL Creatinine 0.8 (0.7-1.3) mg/dL Est Cr Clr Drug Dosing 149.77 mL/min Estimated GFR (MDRD) > 60 (>60) mL/min BUN/Creatinine Ratio 26.3 H (14-18) Glucose 151 H (74-106) mg/dL Calcium 8.7 (8.5-10.1) mg/dL Magnesium 2.0 (1.8-2.4) mg/dl Med Orders - Current: Current Medications Acetaminophen (Tylenol Solution) 650 mg PO Q6H PRN PRN Reason: Pain (moderate 4-6) Amlodipine Besylate (Norvasc) 5 mg PO BEDTIME [facility] Last Admin: 09/13/16 20:57 Dose: 5 mg Chlordiazepoxide HCl (Librium) 25 mg PO QID [facility] Clonidine HCl (Catapres) 0.1 mg PO Q12HR [facility] Last Admin: 09/14/16 08:45 Dose: 0.1 mg Fluoxetine HCl (Prozac) 20 mg PO DAILY [facility] Last Admin: 09/14/16 08:45 Dose: 20 mg Hydralazine HCl (Apresoline) 20 mg IVPUSH Q6H PRN PRN Reason: Hypertension Last Admin: 09/13/16 16:24 Dose: 20 mg Lactated Ringer's (Ringers, Lactated) 1,000 mls @ 150 mls/hr IV ASDIRECTED [facility] Last Admin: 09/13/16 04:32 Dose: 150 mls/hr Lorazepam (Ativan) 1 mg IVPUSH Q8H PRN PRN Reason: Anxiety Last Admin: 09/14/16 09:06 Dose: 1 mg Lorazepam (Ativan) 1 mg PO Q4H PRN PRN Reason: Anxiety Lorazepam (Ativan) 1 mg IVPUSH Q4H PRN; Protocol PRN Reason: Withdrawal Symptoms Methylprednisolone Sodium Succinate (Solu-Medrol) 125 mg IVPUSH Q12H [facility] Last Admin: 09/14/16 08:46 Dose: 125 mg Metoprolol Tartrate (Lopressor) 25 mg PO Q12HR [facility] Last Admin: 09/14/16 08:45 Dose: 25 mg Miscellaneous Information (Remove Patch) 1 ea TRDERM DAILY [facility] Last Admin: 09/14/16 08:47 Dose: 1 ea Nicotine (Habitrol) 21 mg TRDERM DAILY [facility] Last Admin: 09/14/16 08:45 Dose: 21 mg Pantoprazole Sodium (Protonix) 40 mg PO BEDTIME [facility] Last Admin: 09/13/16 20:57 Dose: 40 mg Quetiapine Fumarate (Seroquel) 25 mg PO BEDTIME [facility] Last Admin: 09/13/16 21:11 Dose: 25 mg Sodium Chloride (Saline Flush) 10 ml FLUSH ASDIRECTED PRN PRN Reason: Keep Vein Open Last Admin: 09/12/16 20:18 Dose: 10 ml Sodium Chloride (Saline Flush) 10 ml FLUSH ONETIME PRN PRN Reason: IV FLUSH Last Admin: 09/12/16 20:09 Dose: 10 ml Temazepam (Restoril) 15 mg PO BEDTIME PRN PRN Reason: Insomnia Last Admin: 09/12/16 21:52 Dose: 15 mg Discontinued Medications Chlordiazepoxide HCl (Librium) 15 mg PO TID [facility] Chlordiazepoxide HCl (Librium) 15 mg PO TID [facility] Last Admin: 09/14/16 08:44 Dose: 15 mg Chlordiazepoxide HCl (Librium) 15 mg PO ONETIME ONE Stop: 09/13/16 21:16 Last Admin: 09/13/16 21:08 Dose: 15 mg Clonidine HCl (Catapres) Confirm Administered Dose 0.1 mg .ROUTE .STK-MED ONE Stop: 09/13/16 18:33 Last Admin: 09/13/16 19:43 Dose: Not Given Magnesium Sulfate 2 gm/ Premix 50 mls @ 25 mls/hr IV ONETIME ONE Stop: 09/13/16 12:17 Last Admin: 09/13/16 12:27 Dose: 25 mls/hr Iopamidol (Isovue-300 (61%)) 80 ml IVPUSH ONETIME ONE Stop: 09/12/16 19:52 Last Admin: 09/12/16 20:09 Dose: 80 ml Ketorolac Tromethamine (Toradol) 60 mg IVPUSH ONETIME ONE Stop: 09/12/16 21:01 Last Admin: 09/12/16 21:51 Dose: 60 mg Ketorolac Tromethamine (Toradol) 30 mg IVPUSH Q6H [facility] Stop: 09/13/16 21:01 Last Admin: 09/13/16 20:56 Dose: 30 mg Ketorolac Tromethamine (Toradol) 60 mg IVPUSH ONETIME ONE Stop: 09/12/16 21:46 Last Admin: 09/12/16 22:01 Dose: Not Given Lorazepam (Ativan) 2 mg PO ONETIME ONE Stop: 09/13/16 09:07 Last Admin: 09/13/16 09:51 Dose: 2 mg Metoprolol Tartrate (Lopressor) 25 mg PO ONETIME ONE Stop: 09/13/16 12:31 Last Admin: 09/13/16 12:30 Dose: 25 mg Nicotine (Habitrol) 14 mg TRDERM ONETIME ONE Stop: 09/12/16 20:02 Last Admin: 09/12/16 20:17 Dose: 14 mg Quetiapine Fumarate (Seroquel) 25 mg PO ONETIME ONE Stop: 09/13/16 09:05 Last Admin: 09/13/16 09:51 Dose: 25 mg - Exam Quality Assessment: DVT prophylaxis General: alert, oriented, no acute distress HEENT: Pupils equal, Pupils reactive Neck: supple, trachea midline Lungs: Normal respiratory effort Cardiovascular: Regular Rate, Tachycardia Abdomen: bowel sounds present, soft, no tenderness, no distension (Male) Exam: Deferred Back Exam: normal inspection Extremities: normal pulses Skin: warm Neurological: no new focal deficit, normal speech Psy/Mental Status: alert, anxious - Problem List Review Problem List Initiated/Reviewed/Updated: Yes - My Orders Last 24 Hours: My Active Orders 09/13/16 10:00 Consult to Physical Therapy [PT Evaluation and Treatment] [CONS] Routine 09/13/16 10:16 Consult for Substance Abuse [CONS] Routine 09/13/16 18:12 LORazepam [Ativan] 1 mg PO Q4H PRN 09/13/16 21:00 Metoprolol Tartrate [Lopressor] 25 mg PO Q12HR cloNIDine [Catapres] 0.1 mg PO Q12HR 09/14/16 10:03 Incentive Spirometry [RT Incentive Spirometry] [RC] ASDIRECTED 09/14/16 10:36 LORazepam [Ativan] 1 mg IVPUSH Q4H PRN 09/14/16 13:00 chlordiazePOXIDE [Librium] 25 mg PO QID 09/15/16 05:00 BMP [BASIC METABOLIC PANEL,BMP] [CHEM] DAILY CBC WITH AUTO DIFF [HEME] DAILY MAGNESIUM [CHEM] DAILY - Plan Plan:: Impression: Depression/Anxiety Suicide attempt, unsuccessful hanging without LOC CT of neck without signs of trauma Hypertension currently, probable ETOH withdrawal Tobacco dependence Plan: ICU with close monitoring Start Norvacs q HS; add BB and alpha miya Hydralazine prn CIWA protocol HTN meds Habitrol Involuntary commitment next week. DVT/GI prophylaxis
[2016-09-14] MEDS: chlordiazePOXIDE 25 MG Cap PO SCH ×3 (12:19→20:53)
[2016-09-14] MEDS: Acetaminophen Susp 325 MG/10.15 ML UD Cup PO PRN (14:41)
[2016-09-14] MEDS: QUEtiapine 25 MG Tab PO SCH (20:52)
[2016-09-14] MEDS: Pantoprazole 40 MG Tab.CR PO SCH (20:53)
[2016-09-14] MEDS: amLODIPine 5 MG Tab PO SCH (20:53)
[2016-09-15] MEDS: Nicotine 21 MG/24 Hr Patch TRDERM SCH (08:15)
[2016-09-15] MEDS: FLUoxetine 20 MG Cap PO SCH (08:15)
[2016-09-15] MEDS: cloNIDine 0.1 MG Tab PO SCH ×2 (08:15→20:13)
[2016-09-15] MEDS: Metoprolol Tartrate 25 MG Tab PO SCH ×2 (08:16→20:10)
[2016-09-15] MEDS: chlordiazePOXIDE 25 MG Cap PO SCH ×4 (08:16→20:09)
--- NOTE | 2016-09-15 09:33 | PCM.PN ---
- General Info Date of Service: 09/15/16 Functional Status: Reports: pain controlled, tolerating diet, ambulating, urinating - Review of Systems General: Reports: No Symptoms HEENT: Reports: no symptoms Pulmonary: Reports: no symptoms Cardiovascular: Reports: No Symptoms Gastrointestinal: Reports: No symptoms Genitourinary: Reports: no symptoms Musculoskeletal: Reports: no symptoms Skin: Reports: no symptoms Neurological: Reports: No Symptoms Psychiatric: Reports: no symptoms - Patient Data Vitals - most recent: Last Vital Signs Temp 37.0 C 09/15/16 07:27 Pulse 67 09/15/16 08:16 Resp 16 09/15/16 07:27 BP 126/91 H 09/15/16 08:16 Pulse Ox 96 09/15/16 07:27 Weight - most recent: 80.739 kg I&O - last 24 hours: Intake & Output 09/14/16 09/15/16 09/15/16 22:59 06:59 14:59 Intake Total 2650 240 Output Total 700 1000 Balance 1950 -760 Lab Results last 24 hrs: Laboratory Results - last 24 hr 09/15/16 09/15/16 Range/Units 05:25 05:35 WBC 9.57 H (4.23-9.07) K/mm3 RBC 3.98 L (4.63-6.08) M/mm3 Hgb 13.0 L (13.7-17.5) gm/L Hct 39.5 L (40.1-51.0) % MCV 99.2 H (79.0-92.2) fl MCH 32.7 H (25.7-32.2) pg MCHC 32.9 (32.2-35.5) g/dl RDW Std Deviation 47.1 H (35.1-43.9) fL Plt Count 274 (163-337) K/mm3 MPV 9.1 L (9.4-12.3) fl Neut % (Auto) 77.3 H (34.0-67.9) % Lymph % (Auto) 13.8 L (21.8-53.1) % [place] % (Auto) 8.6 (5.3-12.2) % Eos % (Auto) 0.1 L (0.8-7.0) Baso % (Auto) 0.0 L (0.1-1.2) % Neut # (Auto) 7.40 H (1.78-5.38) K/mm3 Lymph # (Auto) 1.32 (1.32-3.57) K/mm3 [place] # (Auto) 0.82 (0.30-0.82) K/mm3 Eos # (Auto) 0.01 L (0.04-0.54) K/mm3 Baso # (Auto) 0.00 L (0.01-0.08) K/mm3 Sodium 139 (136-145) mEq/L Potassium 3.9 (3.5-5.1) mEq/L Chloride 105 (98-107) mEq/L Carbon Dioxide 25 (21-32) mEq/L Anion Gap 12.9 (5-15) BUN 21 H (7-18) mg/dL Creatinine 0.8 (0.7-1.3) mg/dL Est Cr Clr Drug Dosing 149.81 mL/min Estimated GFR (MDRD) > 60 (>60) mL/min BUN/Creatinine Ratio 26.3 H (14-18) Glucose 104 (74-106) mg/dL Calcium 8.5 (8.5-10.1) mg/dL Magnesium 2.1 (1.8-2.4) mg/dl Med Orders - Current: Current Medications Acetaminophen (Tylenol Solution) 650 mg PO Q6H PRN PRN Reason: Pain (moderate 4-6) Last Admin: 09/14/16 14:41 Dose: 650 mg Amlodipine Besylate (Norvasc) 5 mg PO BEDTIME [facility] Last Admin: 09/14/16 20:53 Dose: 5 mg Chlordiazepoxide HCl (Librium) 25 mg PO QID [facility] Last Admin: 09/15/16 08:16 Dose: 25 mg Clonidine HCl (Catapres) 0.1 mg PO Q12HR [facility] Last Admin: 09/15/16 08:15 Dose: 0.1 mg Fluoxetine HCl (Prozac) 20 mg PO DAILY [facility] Last Admin: 09/15/16 08:15 Dose: 20 mg Hydralazine HCl (Apresoline) 20 mg IVPUSH Q6H PRN PRN Reason: Hypertension Last Admin: 09/13/16 16:24 Dose: 20 mg Lorazepam (Ativan) 1 mg IVPUSH Q8H PRN PRN Reason: Anxiety Last Admin: 09/14/16 09:06 Dose: 1 mg Lorazepam (Ativan) 1 mg PO Q4H PRN PRN Reason: Anxiety Lorazepam (Ativan) 1 mg IVPUSH Q4H PRN; Protocol PRN Reason: Withdrawal Symptoms Last Admin: 09/14/16 17:49 Dose: 1 mg Metoprolol Tartrate (Lopressor) 25 mg PO Q12HR [facility] Last Admin: 09/15/16 08:16 Dose: 25 mg Miscellaneous Information (Remove Patch) 1 ea TRDERM DAILY [facility] Last Admin: 09/15/16 08:16 Dose: 1 ea Nicotine (Habitrol) 21 mg TRDERM DAILY [facility] Last Admin: 09/15/16 08:15 Dose: 21 mg Pantoprazole Sodium (Protonix) 40 mg PO BEDTIME [facility] Last Admin: 09/14/16 20:53 Dose: 40 mg Quetiapine Fumarate (Seroquel) 25 mg PO BEDTIME [facility] Last Admin: 09/14/16 20:52 Dose: 25 mg Sodium Chloride (Saline Flush) 10 ml FLUSH ASDIRECTED PRN PRN Reason: Keep Vein Open Last Admin: 09/12/16 20:18 Dose: 10 ml Sodium Chloride (Saline Flush) 10 ml FLUSH ONETIME PRN PRN Reason: IV FLUSH Last Admin: 09/12/16 20:09 Dose: 10 ml Temazepam (Restoril) 15 mg PO BEDTIME PRN PRN Reason: Insomnia Last Admin: 09/12/16 21:52 Dose: 15 mg Discontinued Medications Chlordiazepoxide HCl (Librium) 15 mg PO TID [facility] Chlordiazepoxide HCl (Librium) 15 mg PO TID [facility] Last Admin: 09/14/16 08:44 Dose: 15 mg Chlordiazepoxide HCl (Librium) 15 mg PO ONETIME ONE Stop: 09/13/16 21:16 Last Admin: 09/13/16 21:08 Dose: 15 mg Clonidine HCl (Catapres) Confirm Administered Dose 0.1 mg .ROUTE .STK-MED ONE Stop: 09/13/16 18:33 Last Admin: 09/13/16 19:43 Dose: Not Given Lactated Ringer's (Ringers, Lactated) 1,000 mls @ 150 mls/hr IV ASDIRECTED [facility] Last Admin: 09/13/16 04:32 Dose: 150 mls/hr Magnesium Sulfate 2 gm/ Premix 50 mls @ 25 mls/hr IV ONETIME ONE Stop: 09/13/16 12:17 Last Admin: 09/13/16 12:27 Dose: 25 mls/hr Iopamidol (Isovue-300 (61%)) 80 ml IVPUSH ONETIME ONE Stop: 09/12/16 19:52 Last Admin: 09/12/16 20:09 Dose: 80 ml Ketorolac Tromethamine (Toradol) 60 mg IVPUSH ONETIME ONE Stop: 09/12/16 21:01 Last Admin: 09/12/16 21:51 Dose: 60 mg Ketorolac Tromethamine (Toradol) 30 mg IVPUSH Q6H [facility] Stop: 09/13/16 21:01 Last Admin: 09/13/16 20:56 Dose: 30 mg Ketorolac Tromethamine (Toradol) 60 mg IVPUSH ONETIME ONE Stop: 09/12/16 21:46 Last Admin: 09/12/16 22:01 Dose: Not Given Lorazepam (Ativan) 2 mg PO ONETIME ONE Stop: 09/13/16 09:07 Last Admin: 09/13/16 09:51 Dose: 2 mg Methylprednisolone Sodium Succinate (Solu-Medrol) 125 mg IVPUSH Q12H [facility] Last Admin: 09/14/16 08:46 Dose: 125 mg Metoprolol Tartrate (Lopressor) 25 mg PO ONETIME ONE Stop: 09/13/16 12:31 Last Admin: 09/13/16 12:30 Dose: 25 mg Nicotine (Habitrol) 14 mg TRDERM ONETIME ONE Stop: 09/12/16 20:02 Last Admin: 09/12/16 20:17 Dose: 14 mg Quetiapine Fumarate (Seroquel) 25 mg PO ONETIME ONE Stop: 09/13/16 09:05 Last Admin: 09/13/16 09:51 Dose: 25 mg - Exam Quality Assessment: DVT prophylaxis General: alert, oriented, cooperative, no acute distress HEENT: Pupils equal, Pupils reactive, EOMI Neck: supple, trachea midline, no JVD Lungs: Normal respiratory effort Cardiovascular: Regular Rate, Regular Rhythm Abdomen: bowel sounds present, soft, no tenderness, no distension (Male) Exam: Deferred Back Exam: normal inspection Extremities: normal pulses Skin: warm Neurological: no new focal deficit, normal gait, normal speech Psy/Mental Status: alert, normal affect, normal mood, anxious (minimal), agitated (minimal) - Problem List Review Problem List Initiated/Reviewed/Updated: Yes - My Orders Last 24 Hours: My Active Orders 09/14/16 10:03 Incentive Spirometry [RT Incentive Spirometry] [RC] ASDIRECTED 09/14/16 10:36 LORazepam [Ativan] 1 mg IVPUSH Q4H PRN 09/14/16 13:00 chlordiazePOXIDE [Librium] 25 mg PO QID - Plan Plan:: Impression: Depression/Anxiety Suicide attempt, unsuccessful hanging without LOC CT of neck without signs of trauma ETOH withdrawal, decrease tremors with current regimen Tobacco dependence Plan: ICU with close monitoring Start Norvacs q HS; add BB and alpha miya Hydralazine prn [facility]WA protocol HTN meds Habitrol Involuntary commitment next week. DVT/GI prophylaxis DC 24-48 hours
[2016-09-15] MEDS: Ibuprofen 600 MG Tab PO PRN (11:25)
[2016-09-15] MEDS: Benzocaine/Cetylpyridinium/Menthol Lozenge MUCMEM PRN (11:26)
[2016-09-15] MEDS: LORazepam 2 MG/ML MDV IVPUSH PRN (13:15)
[2016-09-15] MEDS: Acetaminophen Susp 325 MG/10.15 ML UD Cup PO PRN (15:18)
[2016-09-15] MEDS: Pantoprazole 40 MG Tab.CR PO SCH (20:09)
[2016-09-15] MEDS: LORazepam 1 MG Tab PO PRN (20:09)
[2016-09-15] MEDS: Temazepam 15 MG Cap PO PRN (20:09)
[2016-09-15] MEDS: QUEtiapine 25 MG Tab PO SCH (20:10)
[2016-09-15] MEDS: amLODIPine 5 MG Tab PO SCH (20:13)
[2016-09-16] MEDS: Nicotine 21 MG/24 Hr Patch TRDERM SCH (08:13)
[2016-09-16] MEDS: Ibuprofen 600 MG Tab PO PRN ×2 (08:14→20:15)
[2016-09-16] MEDS: chlordiazePOXIDE 25 MG Cap PO SCH ×4 (08:45→20:14)
[2016-09-16] MEDS: cloNIDine 0.1 MG Tab PO SCH ×2 (08:45→20:13)
[2016-09-16] MEDS: FLUoxetine 20 MG Cap PO SCH (08:45)
[2016-09-16] MEDS: Metoprolol Tartrate 25 MG Tab PO SCH ×2 (08:46→20:14)
[2016-09-16] MEDS: LORazepam 1 MG Tab PO PRN ×3 (08:46→16:36)
--- NOTE | 2016-09-16 13:46 | PCM.PN ---
- General Info Date of Service: 09/16/16 Functional Status: Reports: pain controlled, tolerating diet, ambulating, urinating - Review of Systems General: Reports: No Symptoms HEENT: Reports: no symptoms Pulmonary: Reports: no symptoms Cardiovascular: Reports: No Symptoms Gastrointestinal: Reports: No symptoms Genitourinary: Reports: no symptoms Musculoskeletal: Reports: neck pain (decreased) Skin: Reports: no symptoms Neurological: Reports: No Symptoms Psychiatric: Reports: no symptoms - Patient Data Vitals - most recent: Last Vital Signs Temp 36.7 C 09/16/16 12:57 Pulse 70 09/16/16 12:57 Resp 16 09/16/16 12:57 BP 122/80 09/16/16 12:57 Pulse Ox 100 09/16/16 12:57 Weight - most recent: 80.3 kg I&O - last 24 hours: Intake & Output 09/15/16 09/16/16 09/16/16 22:59 06:59 14:59 Intake Total 3110 1050 Output Total 550 600 Balance 2560 450 Med Orders - Current: Current Medications Acetaminophen (Tylenol Solution) 650 mg PO Q6H PRN PRN Reason: Pain (moderate 4-6) Last Admin: 09/15/16 15:18 Dose: 650 mg Amlodipine Besylate (Norvasc) 5 mg PO BEDTIME [facility] Last Admin: 09/15/16 20:13 Dose: Not Given Benzocaine/Menthol (Cepacol Sore Throat) 2 lozenge MUCMEM 6XDAY PRN PRN Reason: Sore Throat Last Admin: 09/15/16 11:26 Dose: 2 lozenge Chlordiazepoxide HCl (Librium) 25 mg PO QID [facility] Last Admin: 09/16/16 12:38 Dose: 25 mg Clonidine HCl (Catapres) 0.1 mg PO Q12HR [facility] Last Admin: 09/16/16 08:45 Dose: 0.1 mg Fluoxetine HCl (Prozac) 20 mg PO DAILY [facility] Last Admin: 09/16/16 08:45 Dose: 20 mg Hydralazine HCl (Apresoline) 20 mg IVPUSH Q6H PRN PRN Reason: Hypertension Last Admin: 09/13/16 16:24 Dose: 20 mg Ibuprofen (Motrin) 600 mg PO Q8H PRN PRN Reason: Pain Last Admin: 09/16/16 08:14 Dose: 600 mg Lorazepam (Ativan) 1 mg IVPUSH Q8H PRN PRN Reason: Anxiety Last Admin: 09/14/16 09:06 Dose: 1 mg Lorazepam (Ativan) 1 mg PO Q4H PRN PRN Reason: Anxiety Last Admin: 09/16/16 12:38 Dose: 1 mg Lorazepam (Ativan) 1 mg IVPUSH Q4H PRN; Protocol PRN Reason: Withdrawal Symptoms Last Admin: 09/15/16 13:15 Dose: 1 mg Metoprolol Tartrate (Lopressor) 25 mg PO Q12HR [facility] Last Admin: 09/16/16 08:46 Dose: 25 mg Miscellaneous Information (Remove Patch) 1 ea TRDERM DAILY [facility] Last Admin: 09/16/16 08:33 Dose: 1 ea Nicotine (Habitrol) 21 mg TRDERM DAILY [facility] Last Admin: 09/16/16 08:13 Dose: 21 mg Pantoprazole Sodium (Protonix) 40 mg PO BEDTIME [facility] Last Admin: 09/15/16 20:09 Dose: 40 mg Quetiapine Fumarate (Seroquel) 25 mg PO BEDTIME [facility] Last Admin: 09/15/16 20:10 Dose: 25 mg Sodium Chloride (Saline Flush) 10 ml FLUSH ASDIRECTED PRN PRN Reason: Keep Vein Open Last Admin: 09/12/16 20:18 Dose: 10 ml Sodium Chloride (Saline Flush) 10 ml FLUSH ONETIME PRN PRN Reason: IV FLUSH Last Admin: 09/12/16 20:09 Dose: 10 ml Temazepam (Restoril) 15 mg PO BEDTIME PRN PRN Reason: Insomnia Last Admin: 09/15/16 20:09 Dose: 15 mg Discontinued Medications Chlordiazepoxide HCl (Librium) 15 mg PO TID [facility] Chlordiazepoxide HCl (Librium) 15 mg PO TID [facility] Last Admin: 09/14/16 08:44 Dose: 15 mg Chlordiazepoxide HCl (Librium) 15 mg PO ONETIME ONE Stop: 09/13/16 21:16 Last Admin: 09/13/16 21:08 Dose: 15 mg Clonidine HCl (Catapres) Confirm Administered Dose 0.1 mg .ROUTE .STK-MED ONE Stop: 09/13/16 18:33 Last Admin: 09/13/16 19:43 Dose: Not Given Lactated Ringer's (Ringers, Lactated) 1,000 mls @ 150 mls/hr IV ASDIRECTED [facility] Last Admin: 09/13/16 04:32 Dose: 150 mls/hr Magnesium Sulfate 2 gm/ Premix 50 mls @ 25 mls/hr IV ONETIME ONE Stop: 09/13/16 12:17 Last Admin: 09/13/16 12:27 Dose: 25 mls/hr Iopamidol (Isovue-300 (61%)) 80 ml IVPUSH ONETIME ONE Stop: 09/12/16 19:52 Last Admin: 09/12/16 20:09 Dose: 80 ml Ketorolac Tromethamine (Toradol) 60 mg IVPUSH ONETIME ONE Stop: 09/12/16 21:01 Last Admin: 09/12/16 21:51 Dose: 60 mg Ketorolac Tromethamine (Toradol) 30 mg IVPUSH Q6H [facility] Stop: 09/13/16 21:01 Last Admin: 09/13/16 20:56 Dose: 30 mg Ketorolac Tromethamine (Toradol) 60 mg IVPUSH ONETIME ONE Stop: 09/12/16 21:46 Last Admin: 09/12/16 22:01 Dose: Not Given Lorazepam (Ativan) 2 mg PO ONETIME ONE Stop: 09/13/16 09:07 Last Admin: 09/13/16 09:51 Dose: 2 mg Methylprednisolone Sodium Succinate (Solu-Medrol) 125 mg IVPUSH Q12H [facility] Last Admin: 09/14/16 08:46 Dose: 125 mg Metoprolol Tartrate (Lopressor) 25 mg PO ONETIME ONE Stop: 09/13/16 12:31 Last Admin: 09/13/16 12:30 Dose: 25 mg Nicotine (Habitrol) 14 mg TRDERM ONETIME ONE Stop: 09/12/16 20:02 Last Admin: 09/12/16 20:17 Dose: 14 mg Quetiapine Fumarate (Seroquel) 25 mg PO ONETIME ONE Stop: 09/13/16 09:05 Last Admin: 09/13/16 09:51 Dose: 25 mg - Exam Quality Assessment: DVT prophylaxis General: alert, oriented, cooperative, no acute distress HEENT: Pupils equal, Pupils reactive, EOMI Neck: supple, trachea midline Lungs: Normal respiratory effort Cardiovascular: Regular Rate, Regular Rhythm Abdomen: bowel sounds present, soft, no tenderness, no distension (Male) Exam: Deferred. No: No hernia Back Exam: normal inspection, full range of motion Extremities: normal pulses Skin: warm Neurological: no new focal deficit, normal gait, normal speech Psy/Mental Status: alert, labile mood (less), anxious (no), depressed (mild), agitated (no) - Problem List Review Problem List Initiated/Reviewed/Updated: Yes - Plan Plan:: Impression: Depression/Anxiety Suicide attempt, unsuccessful hanging without LOC CT of neck without signs of trauma ETOH withdrawal, decrease tremors with current regimen Tobacco dependence Plan: DC ICU; change to [place] tele, increase supervised activities as tolerated. Start Norvacs q HS; add BB and alpha miya Hydralazine prn CIWA protocol HTN meds Habitrol Involuntary commitment next week. DVT/GI prophylaxis LOS>96 hours for placement
[2016-09-16] MEDS: Sodium Chloride 0.9% 10 ML Syringe FLUSH PRN (16:37)
[2016-09-16] MEDS: QUEtiapine 25 MG Tab PO SCH ×2 (17:46→20:14)
[2016-09-16] MEDS: amLODIPine 5 MG Tab PO SCH (20:14)
[2016-09-16] MEDS: Pantoprazole 40 MG Tab.CR PO SCH (20:14)
[2016-09-16] MEDS: Benzocaine/Cetylpyridinium/Menthol Lozenge MUCMEM PRN (20:15)
[2016-09-16] MEDS: Temazepam 15 MG Cap PO PRN (20:29)
--- NOTE | 2016-09-17 07:26 | PCM.PN ---
<Kamille Narvaez M - Last Filed: 09/17/16 10:19> - General Info Date of Service: 09/17/16 Admission Dx/Problem (Free Text): Admission Diagnosis/Problem Admission Diagnosis/Problem Suicide by drug overdose Doing well; continues on suicide precautions Denies further suicidal ideations; feels "shaky", no nausea, no headache, no withdrawl symptoms otherwise. Denies c/o pain. Has been committed per Tim [facility]unsford [facility]; awaiting bed at [facility] in [place] Functional Status: Reports: pain controlled, tolerating diet, ambulating, urinating. Denies: new symptoms - Review of Systems General: Reports: No Symptoms HEENT: Reports: no symptoms Pulmonary: Reports: no symptoms Cardiovascular: Reports: No Symptoms Gastrointestinal: Reports: No symptoms Genitourinary: Reports: no symptoms Musculoskeletal: Reports: no symptoms Skin: Reports: no symptoms Neurological: Reports: No Symptoms Psychiatric: Reports: no symptoms - Patient Data Vitals - most recent: Last Vital Signs Temp 97.5 F 09/17/16 03:37 Pulse 64 09/17/16 03:37 Resp 16 09/17/16 03:37 BP 115/74 09/17/16 03:37 Pulse Ox 100 09/17/16 03:37 Weight - most recent: 81.873 kg I&O - last 24 hours: Intake & Output 09/16/16 09/17/16 09/17/16 22:59 06:59 14:59 Intake Total 1070 600 Output Total 1000 1000 Balance 70 -400 Med Orders - Current: Current Medications Acetaminophen (Tylenol Solution) 650 mg PO Q6H PRN PRN Reason: Pain (moderate 4-6) Last Admin: 09/15/16 15:18 Dose: 650 mg Amlodipine Besylate (Norvasc) 5 mg PO BEDTIME [facility] Last Admin: 09/16/16 20:14 Dose: 5 mg Benzocaine/Menthol (Cepacol Sore Throat) 2 lozenge MUCMEM 6XDAY PRN PRN Reason: Sore Throat Last Admin: 09/16/16 20:15 Dose: 2 lozenge Chlordiazepoxide HCl (Librium) 25 mg PO QID [facility] Last Admin: 09/16/16 20:14 Dose: 25 mg Clonidine HCl (Catapres) 0.1 mg PO Q12HR [facility] Last Admin: 09/16/16 20:13 Dose: 0.1 mg Fluoxetine HCl (Prozac) 20 mg PO DAILY [facility] Last Admin: 09/16/16 08:45 Dose: 20 mg Hydralazine HCl (Apresoline) 20 mg IVPUSH Q6H PRN PRN Reason: Hypertension Last Admin: 09/13/16 16:24 Dose: 20 mg Ibuprofen (Motrin) 600 mg PO Q8H PRN PRN Reason: Pain Last Admin: 09/16/16 20:15 Dose: 600 mg Lorazepam (Ativan) 1 mg IVPUSH Q8H PRN PRN Reason: Anxiety Last Admin: 09/14/16 09:06 Dose: 1 mg Lorazepam (Ativan) 1 mg PO Q4H PRN PRN Reason: Anxiety Last Admin: 09/16/16 16:36 Dose: 1 mg Lorazepam (Ativan) 1 mg IVPUSH Q4H PRN; Protocol PRN Reason: Withdrawal Symptoms Last Admin: 09/15/16 13:15 Dose: 1 mg Metoprolol Tartrate (Lopressor) 25 mg PO Q12HR [facility] Last Admin: 09/16/16 20:14 Dose: 25 mg Miscellaneous Information (Remove Patch) 1 ea TRDERM DAILY [facility] Last Admin: 09/16/16 08:33 Dose: 1 ea Nicotine (Habitrol) 21 mg TRDERM DAILY [facility] Last Admin: 09/16/16 08:13 Dose: 21 mg Pantoprazole Sodium (Protonix) 40 mg PO BEDTIME [facility] Last Admin: 09/16/16 20:14 Dose: 40 mg Quetiapine Fumarate (Seroquel) 25 mg PO BID [facility] Last Admin: 09/16/16 20:14 Dose: 25 mg Sodium Chloride (Saline Flush) 10 ml FLUSH ASDIRECTED PRN PRN Reason: Keep Vein Open Last Admin: 09/16/16 16:37 Dose: 10 ml Sodium Chloride (Saline Flush) 10 ml FLUSH ONETIME PRN PRN Reason: IV FLUSH Last Admin: 09/12/16 20:09 Dose: 10 ml Temazepam (Restoril) 15 mg PO BEDTIME PRN PRN Reason: Insomnia Last Admin: 09/16/16 20:29 Dose: 15 mg Discontinued Medications Chlordiazepoxide HCl (Librium) 15 mg PO TID [facility] Chlordiazepoxide HCl (Librium) 15 mg PO TID [facility] Last Admin: 09/14/16 08:44 Dose: 15 mg Chlordiazepoxide HCl (Librium) 15 mg PO ONETIME ONE Stop: 09/13/16 21:16 Last Admin: 09/13/16 21:08 Dose: 15 mg Clonidine HCl (Catapres) Confirm Administered Dose 0.1 mg .ROUTE .STK-MED ONE Stop: 09/13/16 18:33 Last Admin: 09/13/16 19:43 Dose: Not Given Lactated Ringer's (Ringers, Lactated) 1,000 mls @ 150 mls/hr IV ASDIRECTED [facility] Last Admin: 09/13/16 04:32 Dose: 150 mls/hr Magnesium Sulfate 2 gm/ Premix 50 mls @ 25 mls/hr IV ONETIME ONE Stop: 09/13/16 12:17 Last Admin: 09/13/16 12:27 Dose: 25 mls/hr Iopamidol (Isovue-300 (61%)) 80 ml IVPUSH ONETIME ONE Stop: 09/12/16 19:52 Last Admin: 09/12/16 20:09 Dose: 80 ml Ketorolac Tromethamine (Toradol) 60 mg IVPUSH ONETIME ONE Stop: 09/12/16 21:01 Last Admin: 09/12/16 21:51 Dose: 60 mg Ketorolac Tromethamine (Toradol) 30 mg IVPUSH Q6H [facility] Stop: 09/13/16 21:01 Last Admin: 09/13/16 20:56 Dose: 30 mg Ketorolac Tromethamine (Toradol) 60 mg IVPUSH ONETIME ONE Stop: 09/12/16 21:46 Last Admin: 09/12/16 22:01 Dose: Not Given Lorazepam (Ativan) 2 mg PO ONETIME ONE Stop: 09/13/16 09:07 Last Admin: 09/13/16 09:51 Dose: 2 mg Methylprednisolone Sodium Succinate (Solu-Medrol) 125 mg IVPUSH Q12H [facility] Last Admin: 09/14/16 08:46 Dose: 125 mg Metoprolol Tartrate (Lopressor) 25 mg PO ONETIME ONE Stop: 09/13/16 12:31 Last Admin: 09/13/16 12:30 Dose: 25 mg Nicotine (Habitrol) 14 mg TRDERM ONETIME ONE Stop: 09/12/16 20:02 Last Admin: 09/12/16 20:17 Dose: 14 mg Quetiapine Fumarate (Seroquel) 25 mg PO ONETIME ONE Stop: 09/13/16 09:05 Last Admin: 09/13/16 09:51 Dose: 25 mg Quetiapine Fumarate (Seroquel) 25 mg PO BEDTIME [facility] Last Admin: 09/15/16 20:10 Dose: 25 mg - Exam Quality Assessment: DVT prophylaxis General: alert, oriented, cooperative, no acute distress HEENT: Pupils equal, Pupils reactive, EOMI, Mucous membr. moist/pink Neck: supple Lungs: Clear to auscultation, Normal respiratory effort Cardiovascular: Regular Rate, Regular Rhythm Abdomen: bowel sounds present, soft, no tenderness (Male) Exam: Deferred Extremities: no edema, no calf tenderness Peripheral Pulses: 1+: dorsalis pedis (L), dorsalis pedis (R) Skin: warm, dry, intact Neurological: no new focal deficit, other (shakiness to arms/hands bilat). No: normal speech (sense of pressured speech this morning) Psy/Mental Status: alert, anxious. No: suicidal ideation (denies), hallucinations - Problem List & Annotations (1) Suicide attempt SNOMED Code(s): 57517190 Code(s): T14.91 - SUICIDE ATTEMPT Status: Acute Priority: High Current Visit: Yes (2) Depression SNOMED Code(s): 65795821 Code(s): F32.9 - MAJOR DEPRESSIVE DISORDER, SINGLE EPISODE, UNSPECIFIED Status: Acute Priority: High Current Visit: Yes Qualifiers: Depression Type: unspecified Qualified Code(s): F32.9 - Major depressive disorder, single episode, unspecified (3) Anxiety SNOMED Code(s): 08101295 Code(s): F41.9 - ANXIETY DISORDER, UNSPECIFIED Status: Acute Priority: High Current Visit: Yes (4) EtOH dependence SNOMED Code(s): 63783034, 063596908 Code(s): F10.20 - ALCOHOL DEPENDENCE, UNCOMPLICATED Status: Acute Priority: High Current Visit: Yes Qualifiers: Substance use status: with intoxication Complication of substance-induced condition: with unspecified complication Qualified Code(s): F10.229 - Alcohol dependence with intoxication, unspecified - Problem List Review Problem List Initiated/Reviewed/Updated: Yes - Plan Plan:: Impression: Depression/Anxiety Suicide attempt, unsuccessful hanging without LOC CT of neck without signs of trauma ETOH withdrawal, decrease tremors with current regimen Tobacco dependence Plan: DC ICU; change to [employer], increase supervised activities as tolerated. Cont with suicide precautions Start Norvacs q HS; add BB and alpha miya--b/p improved Hydralazine prn [facility] protocol [facility] Involuntary commitment; awaiting bed/placement at [facility] in [place] DVT/GI prophylaxis LOS>96 hours for placement at [facility] <Ximena Rubalcava - Last Filed: 09/17/16 19:51> - Patient Data Vitals - most recent: Last Vital Signs Temp 36.6 C 09/17/16 15:49 Pulse 67 09/17/16 15:49 Resp 18 09/17/16 15:49 BP 118/64 09/17/16 15:49 Pulse Ox 99 09/17/16 15:49 I&O - last 24 hours: Intake & Output 09/17/16 09/17/16 09/17/16 06:59 14:59 22:59 Intake Total 754 994 0846 Output Total 1000 1450 Balance -338 943 8211 Lab Results last 24 hrs: Laboratory Results - last 24 hr 09/17/16 Range/Units 10:56 WBC 6.25 (4.23-9.07) K/mm3 RBC 4.19 L (4.63-6.08) M/mm3 Hgb 13.7 (13.7-17.5) gm/L Hct 41.5 (40.1-51.0) % MCV 99.0 H (79.0-92.2) fl MCH 32.7 H (25.7-32.2) pg MCHC 33.0 (32.2-35.5) g/dl RDW Std Deviation 46.2 H (35.1-43.9) fL Plt Count 240 (163-337) K/mm3 MPV 8.7 L (9.4-12.3) fl Med Orders - Current: Current Medications Acetaminophen (Tylenol Solution) 650 mg PO Q6H PRN PRN Reason: Pain (moderate 4-6) Last Admin: 09/15/16 15:18 Dose: 650 mg Amlodipine Besylate (Norvasc) 5 mg PO BEDTIME [facility] Last Admin: 09/16/16 20:14 Dose: 5 mg Benzocaine/Menthol (Cepacol Sore Throat) 2 lozenge MUCMEM 6XDAY PRN PRN Reason: Sore Throat Last Admin: 09/17/16 11:23 Dose: 2 lozenge Chlordiazepoxide HCl (Librium) 25 mg PO QID [facility] Last Admin: 09/17/16 16:33 Dose: 25 mg Clonidine HCl (Catapres) 0.1 mg PO Q12HR [facility] Last Admin: 09/17/16 10:02 Dose: 0.1 mg Fluoxetine HCl (Prozac) 20 mg PO DAILY [facility] Last Admin: 09/17/16 10:00 Dose: 20 mg Hydralazine HCl (Apresoline) 20 mg IVPUSH Q6H PRN PRN Reason: Hypertension Last Admin: 09/13/16 16:24 Dose: 20 mg Ibuprofen (Motrin) 600 mg PO Q8H PRN PRN Reason: Pain Last Admin: 09/16/16 20:15 Dose: 600 mg Lorazepam (Ativan) 1 mg IVPUSH Q8H PRN PRN Reason: Anxiety Last Admin: 09/14/16 09:06 Dose: 1 mg Lorazepam (Ativan) 1 mg PO Q4H PRN PRN Reason: Anxiety Last Admin: 09/17/16 14:09 Dose: 1 mg Lorazepam (Ativan) 1 mg IVPUSH Q4H PRN; Protocol PRN Reason: Withdrawal Symptoms Last Admin: 09/17/16 17:57 Dose: 1 mg Metoprolol Tartrate (Lopressor) 25 mg PO Q12HR [facility] Last Admin: 09/17/16 10:00 Dose: 25 mg Miscellaneous Information (Remove Patch) 1 ea TRDERM DAILY [facility] Last Admin: 09/17/16 10:03 Dose: 1 ea Nicotine (Habitrol) 21 mg TRDERM DAILY [facility] Last Admin: 09/17/16 09:59 Dose: 21 mg Pantoprazole Sodium (Protonix) 40 mg PO BEDTIME [facility] Last Admin: 09/16/16 20:14 Dose: 40 mg Quetiapine Fumarate (Seroquel) 25 mg PO BID [facility] Last Admin: 09/17/16 10:03 Dose: 25 mg Sodium Chloride (Saline Flush) 10 ml FLUSH ASDIRECTED PRN PRN Reason: Keep Vein Open Last Admin: 09/16/16 16:37 Dose: 10 ml Sodium Chloride (Saline Flush) 10 ml FLUSH ONETIME PRN PRN Reason: IV FLUSH Last Admin: 09/12/16 20:09 Dose: 10 ml Temazepam (Restoril) 15 mg PO BEDTIME PRN PRN Reason: Insomnia Last Admin: 09/16/16 20:29 Dose: 15 mg Discontinued Medications Chlordiazepoxide HCl (Librium) 15 mg PO TID [facility] Chlordiazepoxide HCl (Librium) 15 mg PO TID [facility] Last Admin: 09/14/16 08:44 Dose: 15 mg Chlordiazepoxide HCl (Librium) 15 mg PO ONETIME ONE Stop: 09/13/16 21:16 Last Admin: 09/13/16 21:08 Dose: 15 mg Clonidine HCl (Catapres) Confirm Administered Dose 0.1 mg .ROUTE .STK-MED ONE Stop: 09/13/16 18:33 Last Admin: 09/13/16 19:43 Dose: Not Given Lactated Ringer's (Ringers, Lactated) 1,000 mls @ 150 mls/hr IV ASDIRECTED [facility] Last Admin: 09/13/16 04:32 Dose: 150 mls/hr Magnesium Sulfate 2 gm/ Premix 50 mls @ 25 mls/hr IV ONETIME ONE Stop: 09/13/16 12:17 Last Admin: 09/13/16 12:27 Dose: 25 mls/hr Iopamidol (Isovue-300 (61%)) 80 ml IVPUSH ONETIME ONE Stop: 09/12/16 19:52 Last Admin: 09/12/16 20:09 Dose: 80 ml Ketorolac Tromethamine (Toradol) 60 mg IVPUSH ONETIME ONE Stop: 09/12/16 21:01 Last Admin: 09/12/16 21:51 Dose: 60 mg Ketorolac Tromethamine (Toradol) 30 mg IVPUSH Q6H [facility] Stop: 09/13/16 21:01 Last Admin: 09/13/16 20:56 Dose: 30 mg Ketorolac Tromethamine (Toradol) 60 mg IVPUSH ONETIME ONE Stop: 09/12/16 21:46 Last Admin: 09/12/16 22:01 Dose: Not Given Lorazepam (Ativan) 2 mg PO ONETIME ONE Stop: 09/13/16 09:07 Last Admin: 09/13/16 09:51 Dose: 2 mg Methylprednisolone Sodium Succinate (Solu-Medrol) 125 mg IVPUSH Q12H [facility] Last Admin: 09/14/16 08:46 Dose: 125 mg Metoprolol Tartrate (Lopressor) 25 mg PO ONETIME ONE Stop: 09/13/16 12:31 Last Admin: 09/13/16 12:30 Dose: 25 mg Nicotine (Habitrol) 14 mg TRDERM ONETIME ONE Stop: 09/12/16 20:02 Last Admin: 09/12/16 20:17 Dose: 14 mg Quetiapine Fumarate (Seroquel) 25 mg PO ONETIME ONE Stop: 09/13/16 09:05 Last Admin: 09/13/16 09:51 Dose: 25 mg Quetiapine Fumarate (Seroquel) 25 mg PO BEDTIME [facility] Last Admin: 09/15/16 20:10 Dose: 25 mg - Plan Plan:: Await bed in [facility], LOS>96 hours
[2016-09-17] MEDS: Nicotine 21 MG/24 Hr Patch TRDERM SCH (09:59)
[2016-09-17] MEDS: Metoprolol Tartrate 25 MG Tab PO SCH ×2 (10:00→20:09)
[2016-09-17] MEDS: chlordiazePOXIDE 25 MG Cap PO SCH ×4 (10:00→20:09)
[2016-09-17] MEDS: FLUoxetine 20 MG Cap PO SCH (10:00)
[2016-09-17] MEDS: cloNIDine 0.1 MG Tab PO SCH ×2 (10:02→20:06)
[2016-09-17] MEDS: QUEtiapine 25 MG Tab PO SCH ×2 (10:03→20:09)
[2016-09-17] MEDS: LORazepam 2 MG/ML MDV IVPUSH PRN ×4 (10:10→22:01)
[2016-09-17] MEDS: Benzocaine/Cetylpyridinium/Menthol Lozenge MUCMEM PRN (11:23)
[2016-09-17] MEDS: LORazepam 1 MG Tab PO PRN ×2 (14:09→20:07)
[2016-09-17] MEDS: Temazepam 15 MG Cap PO PRN (20:07)
[2016-09-17] MEDS: Pantoprazole 40 MG Tab.CR PO SCH (20:09)
[2016-09-17] MEDS: amLODIPine 5 MG Tab PO SCH (20:10)
[2016-09-18] MEDS: Metoprolol Tartrate 25 MG Tab PO SCH ×2 (08:55→20:15)
[2016-09-18] MEDS: QUEtiapine 25 MG Tab PO SCH ×2 (08:55→20:16)
[2016-09-18] MEDS: FLUoxetine 20 MG Cap PO SCH (08:56)
[2016-09-18] MEDS: cloNIDine 0.1 MG Tab PO SCH ×2 (08:56→20:14)
[2016-09-18] MEDS: Nicotine 21 MG/24 Hr Patch TRDERM SCH (08:56)
[2016-09-18] MEDS: chlordiazePOXIDE 25 MG Cap PO SCH ×4 (08:56→20:11)
[2016-09-18] MEDS: LORazepam 2 MG/ML MDV IVPUSH PRN ×2 (09:10→22:03)
[2016-09-18] MEDS: LORazepam 1 MG Tab PO PRN ×2 (12:26→17:22)
--- NOTE | 2016-09-18 13:26 | PCM.PN ---
<Kamille Narvaez M - Last Filed: 09/18/16 13:24> - General Info Date of Service: 09/18/16 Admission Dx/Problem (Free Text): Admission Diagnosis/Problem Admission Diagnosis/Problem Suicide by drug overdose Doing well; continues on suicide precautions and 1:1 Denies further suicidal ideations; feels "shaky", no nausea, no headache, no withdrawl symptoms otherwise. Denies c/o pain. Has been committed per Tim Lunsford [facility]; awaiting bed at [facility] in [place] Functional Status: Reports: tolerating diet, ambulating, urinating. Denies: new symptoms - Review of Systems General: Reports: No Symptoms HEENT: Reports: no symptoms Pulmonary: Reports: no symptoms Cardiovascular: Reports: No Symptoms Gastrointestinal: Reports: No symptoms Genitourinary: Reports: no symptoms Musculoskeletal: Reports: no symptoms Skin: Reports: no symptoms Neurological: Reports: No Symptoms Psychiatric: Reports: anxiety. Denies: hallucinations, suicidal ideation - Patient Data Vitals - most recent: Last Vital Signs Temp 97.3 F 09/18/16 08:41 Pulse 78 09/18/16 08:55 Resp 18 09/18/16 08:41 BP 126/73 09/18/16 08:56 Pulse Ox 99 09/18/16 08:41 Weight - most recent: 80.876 kg I&O - last 24 hours: Intake & Output 09/17/16 09/18/16 09/18/16 22:59 06:59 14:59 Intake Total 2550 400 Output Total 1450 Balance 1100 400 Med Orders - Current: Current Medications Acetaminophen (Tylenol Solution) 650 mg PO Q6H PRN PRN Reason: Pain (moderate 4-6) Last Admin: 09/15/16 15:18 Dose: 650 mg Amlodipine Besylate (Norvasc) 5 mg PO BEDTIME [facility] Last Admin: 09/17/16 20:10 Dose: Not Given Benzocaine/Menthol (Cepacol Sore Throat) 2 lozenge MUCMEM 6XDAY PRN PRN Reason: Sore Throat Last Admin: 09/17/16 11:23 Dose: 2 lozenge Chlordiazepoxide HCl (Librium) 25 mg PO QID [facility] Last Admin: 09/18/16 12:26 Dose: 25 mg Clonidine HCl (Catapres) 0.1 mg PO Q12HR [facility] Last Admin: 09/18/16 08:56 Dose: 0.1 mg Fluoxetine HCl (Prozac) 20 mg PO DAILY [facility] Last Admin: 09/18/16 08:56 Dose: 20 mg Hydralazine HCl (Apresoline) 20 mg IVPUSH Q6H PRN PRN Reason: Hypertension Last Admin: 09/13/16 16:24 Dose: 20 mg Ibuprofen (Motrin) 600 mg PO Q8H PRN PRN Reason: Pain Last Admin: 09/16/16 20:15 Dose: 600 mg Lorazepam (Ativan) 1 mg IVPUSH Q8H PRN PRN Reason: Anxiety Last Admin: 09/18/16 09:10 Dose: 1 mg Lorazepam (Ativan) 1 mg PO Q4H PRN PRN Reason: Anxiety Last Admin: 09/18/16 12:26 Dose: 1 mg Lorazepam (Ativan) 1 mg IVPUSH Q4H PRN; Protocol PRN Reason: Withdrawal Symptoms Last Admin: 09/17/16 17:57 Dose: 1 mg Metoprolol Tartrate (Lopressor) 25 mg PO Q12HR [facility] Last Admin: 09/18/16 08:55 Dose: 25 mg Miscellaneous Information (Remove Patch) 1 ea TRDERM DAILY [facility] Last Admin: 09/18/16 08:59 Dose: 1 ea Nicotine (Habitrol) 21 mg TRDERM DAILY [facility] Last Admin: 09/18/16 08:56 Dose: 21 mg Pantoprazole Sodium (Protonix) 40 mg PO BEDTIME [facility] Last Admin: 09/17/16 20:09 Dose: 40 mg Quetiapine Fumarate (Seroquel) 25 mg PO BID [facility] Last Admin: 09/18/16 08:55 Dose: 25 mg Sodium Chloride (Saline Flush) 10 ml FLUSH ASDIRECTED PRN PRN Reason: Keep Vein Open Last Admin: 09/16/16 16:37 Dose: 10 ml Temazepam (Restoril) 15 mg PO BEDTIME PRN PRN Reason: Insomnia Last Admin: 09/17/16 20:07 Dose: 15 mg Discontinued Medications Chlordiazepoxide HCl (Librium) 15 mg PO TID [facility] Chlordiazepoxide HCl (Librium) 15 mg PO TID [facility] Last Admin: 09/14/16 08:44 Dose: 15 mg Chlordiazepoxide HCl (Librium) 15 mg PO ONETIME ONE Stop: 09/13/16 21:16 Last Admin: 09/13/16 21:08 Dose: 15 mg Clonidine HCl (Catapres) Confirm Administered Dose 0.1 mg .ROUTE .STK-MED ONE Stop: 09/13/16 18:33 Last Admin: 09/13/16 19:43 Dose: Not Given Lactated Ringer's (Ringers, Lactated) 1,000 mls @ 150 mls/hr IV ASDIRECTED [facility] Last Admin: 09/13/16 04:32 Dose: 150 mls/hr Magnesium Sulfate 2 gm/ Premix 50 mls @ 25 mls/hr IV ONETIME ONE Stop: 09/13/16 12:17 Last Admin: 09/13/16 12:27 Dose: 25 mls/hr Iopamidol (Isovue-300 (61%)) 80 ml IVPUSH ONETIME ONE Stop: 09/12/16 19:52 Last Admin: 09/12/16 20:09 Dose: 80 ml Ketorolac Tromethamine (Toradol) 60 mg IVPUSH ONETIME ONE Stop: 09/12/16 21:01 Last Admin: 09/12/16 21:51 Dose: 60 mg Ketorolac Tromethamine (Toradol) 30 mg IVPUSH Q6H [facility] Stop: 09/13/16 21:01 Last Admin: 09/13/16 20:56 Dose: 30 mg Ketorolac Tromethamine (Toradol) 60 mg IVPUSH ONETIME ONE Stop: 09/12/16 21:46 Last Admin: 09/12/16 22:01 Dose: Not Given Lorazepam (Ativan) 2 mg PO ONETIME ONE Stop: 09/13/16 09:07 Last Admin: 09/13/16 09:51 Dose: 2 mg Methylprednisolone Sodium Succinate (Solu-Medrol) 125 mg IVPUSH Q12H [facility] Last Admin: 09/14/16 08:46 Dose: 125 mg Metoprolol Tartrate (Lopressor) 25 mg PO ONETIME ONE Stop: 09/13/16 12:31 Last Admin: 09/13/16 12:30 Dose: 25 mg Nicotine (Habitrol) 14 mg TRDERM ONETIME ONE Stop: 09/12/16 20:02 Last Admin: 09/12/16 20:17 Dose: 14 mg Quetiapine Fumarate (Seroquel) 25 mg PO ONETIME ONE Stop: 09/13/16 09:05 Last Admin: 09/13/16 09:51 Dose: 25 mg Quetiapine Fumarate (Seroquel) 25 mg PO BEDTIME [facility] Last Admin: 09/15/16 20:10 Dose: 25 mg Sodium Chloride (Saline Flush) 10 ml FLUSH ONETIME PRN PRN Reason: IV FLUSH Last Admin: 09/12/16 20:09 Dose: 10 ml - Exam Quality Assessment: DVT prophylaxis General: alert, oriented, cooperative, no acute distress HEENT: Pupils equal, Pupils reactive, EOMI, Mucous membr. moist/pink Neck: supple Lungs: Clear to auscultation, Normal respiratory effort Cardiovascular: Regular Rate, Regular Rhythm Abdomen: bowel sounds present, soft, no tenderness, no distension Skin: warm, dry Neurological: no new focal deficit Psy/Mental Status: alert, normal affect, anxious - Problem List & Annotations (1) Suicide attempt SNOMED Code(s): 49058328 Code(s): T14.91 - SUICIDE ATTEMPT Status: Acute Priority: High Current Visit: Yes (2) Depression SNOMED Code(s): 82841126 Code(s): F32.9 - MAJOR DEPRESSIVE DISORDER, SINGLE EPISODE, UNSPECIFIED Status: Acute Priority: High Current Visit: Yes Qualifiers: Depression Type: unspecified Qualified Code(s): F32.9 - Major depressive disorder, single episode, unspecified (3) Anxiety SNOMED Code(s): 24131803 Code(s): F41.9 - ANXIETY DISORDER, UNSPECIFIED Status: Acute Priority: High Current Visit: Yes (4) EtOH dependence SNOMED Code(s): 26569258, 843921345 Code(s): F10.20 - ALCOHOL DEPENDENCE, UNCOMPLICATED Status: Acute Priority: High Current Visit: Yes Qualifiers: Substance use status: with intoxication Complication of substance-induced condition: with unspecified complication Qualified Code(s): F10.229 - Alcohol dependence with intoxication, unspecified - Problem List Review Problem List Initiated/Reviewed/Updated: Yes - Plan Plan:: Impression: Depression/Anxiety Suicide attempt, unsuccessful hanging without LOC CT of neck without signs of trauma ETOH withdrawal, decrease tremors with current regimen Tobacco dependence Plan: Cont with suicide precautions and 1:1 care Start Norvacs q HS; add BB and alpha miya--b/p improved Hydralazine prn [place] protocol-- scores 7,3 and 4 today; up to 10 yesterday [facility] Involuntary commitment; awaiting bed/placement at [facility] in [place] DVT/GI prophylaxis LOS>96 hours for placement at [facility] <Ximena Rubalcava Maryann - Last Filed: 09/18/16 18:44> - Patient Data Vitals - most recent: Last Vital Signs Temp 36.7 C 09/18/16 14:16 Pulse 78 09/18/16 16:43 Resp 17 09/18/16 14:16 BP 124/70 09/18/16 16:43 Pulse Ox 99 09/18/16 16:43 I&O - last 24 hours: Intake & Output 09/18/16 09/18/16 09/18/16 06:59 14:59 22:59 Intake Total 400 800 690 Output Total 1700 Balance 400 -900 690 Med Orders - Current: Current Medications Acetaminophen (Tylenol Solution) 650 mg PO Q6H PRN PRN Reason: Pain (moderate 4-6) Last Admin: 09/15/16 15:18 Dose: 650 mg Amlodipine Besylate (Norvasc) 5 mg PO BEDTIME [facility] Last Admin: 09/17/16 20:10 Dose: Not Given Benzocaine/Menthol (Cepacol Sore Throat) 2 lozenge [facility] 6XDAY PRN PRN Reason: Sore Throat Last Admin: 09/17/16 11:23 Dose: 2 lozenge Chlordiazepoxide HCl (Librium) 25 mg PO QID [facility] Last Admin: 09/18/16 17:23 Dose: 25 mg Clonidine HCl (Catapres) 0.1 mg PO Q12HR [facility] Last Admin: 09/18/16 08:56 Dose: 0.1 mg Fluoxetine HCl (Prozac) 20 mg PO DAILY [facility] Last Admin: 09/18/16 08:56 Dose: 20 mg Hydralazine HCl (Apresoline) 20 mg IVPUSH Q6H PRN PRN Reason: Hypertension Last Admin: 09/13/16 16:24 Dose: 20 mg Ibuprofen (Motrin) 600 mg PO Q8H PRN PRN Reason: Pain Last Admin: 09/16/16 20:15 Dose: 600 mg Lorazepam (Ativan) 1 mg IVPUSH Q8H PRN PRN Reason: Anxiety Last Admin: 09/18/16 09:10 Dose: 1 mg Lorazepam (Ativan) 1 mg PO Q4H PRN PRN Reason: Anxiety Last Admin: 09/18/16 17:22 Dose: 1 mg Lorazepam (Ativan) 1 mg IVPUSH Q4H PRN; Protocol PRN Reason: Withdrawal Symptoms Last Admin: 09/17/16 17:57 Dose: 1 mg Metoprolol Tartrate (Lopressor) 25 mg PO Q12HR [facility] Last Admin: 09/18/16 08:55 Dose: 25 mg Miscellaneous Information (Remove Patch) 1 ea TRDERM DAILY [facility] Last Admin: 09/18/16 08:59 Dose: 1 ea Nicotine (Habitrol) 21 mg TRDERM DAILY [facility] Last Admin: 09/18/16 08:56 Dose: 21 mg Pantoprazole Sodium (Protonix) 40 mg PO BEDTIME [facility] Last Admin: 09/17/16 20:09 Dose: 40 mg Quetiapine Fumarate (Seroquel) 25 mg PO BID [facility] Last Admin: 09/18/16 08:55 Dose: 25 mg Sodium Chloride (Saline Flush) 10 ml FLUSH ASDIRECTED PRN PRN Reason: Keep Vein Open Last Admin: 09/16/16 16:37 Dose: 10 ml Temazepam (Restoril) 15 mg PO BEDTIME PRN PRN Reason: Insomnia Last Admin: 09/17/16 20:07 Dose: 15 mg Discontinued Medications Chlordiazepoxide HCl (Librium) 15 mg PO TID [facility] Chlordiazepoxide HCl (Librium) 15 mg PO TID [facility] Last Admin: 09/14/16 08:44 Dose: 15 mg Chlordiazepoxide HCl (Librium) 15 mg PO ONETIME ONE Stop: 09/13/16 21:16 Last Admin: 09/13/16 21:08 Dose: 15 mg Clonidine HCl (Catapres) Confirm Administered Dose 0.1 mg .ROUTE .STK-MED ONE Stop: 09/13/16 18:33 Last Admin: 09/13/16 19:43 Dose: Not Given Lactated Ringer's (Ringers, Lactated) 1,000 mls @ 150 mls/hr IV ASDIRECTED [facility] Last Admin: 09/13/16 04:32 Dose: 150 mls/hr Magnesium Sulfate 2 gm/ Premix 50 mls @ 25 mls/hr IV ONETIME ONE Stop: 09/13/16 12:17 Last Admin: 09/13/16 12:27 Dose: 25 mls/hr Iopamidol (Isovue-300 (61%)) 80 ml IVPUSH ONETIME ONE Stop: 09/12/16 19:52 Last Admin: 09/12/16 20:09 Dose: 80 ml Ketorolac Tromethamine (Toradol) 60 mg IVPUSH ONETIME ONE Stop: 09/12/16 21:01 Last Admin: 09/12/16 21:51 Dose: 60 mg Ketorolac Tromethamine (Toradol) 30 mg IVPUSH Q6H [facility] Stop: 09/13/16 21:01 Last Admin: 09/13/16 20:56 Dose: 30 mg Ketorolac Tromethamine (Toradol) 60 mg IVPUSH ONETIME ONE Stop: 09/12/16 21:46 Last Admin: 09/12/16 22:01 Dose: Not Given Lorazepam (Ativan) 2 mg PO ONETIME ONE Stop: 09/13/16 09:07 Last Admin: 09/13/16 09:51 Dose: 2 mg Methylprednisolone Sodium Succinate (Solu-Medrol) 125 mg IVPUSH Q12H [facility] Last Admin: 09/14/16 08:46 Dose: 125 mg Metoprolol Tartrate (Lopressor) 25 mg PO ONETIME ONE Stop: 09/13/16 12:31 Last Admin: 09/13/16 12:30 Dose: 25 mg Nicotine (Habitrol) 14 mg TRDERM ONETIME ONE Stop: 09/12/16 20:02 Last Admin: 09/12/16 20:17 Dose: 14 mg Quetiapine Fumarate (Seroquel) 25 mg PO ONETIME ONE Stop: 09/13/16 09:05 Last Admin: 09/13/16 09:51 Dose: 25 mg Quetiapine Fumarate (Seroquel) 25 mg PO BEDTIME [facility] Last Admin: 09/15/16 20:10 Dose: 25 mg Sodium Chloride (Saline Flush) 10 ml FLUSH ONETIME PRN PRN Reason: IV FLUSH Last Admin: 09/12/16 20:09 Dose: 10 ml - Plan Plan:: Agree with plan of care
[2016-09-18] MEDS: Pantoprazole 40 MG Tab.CR PO SCH (20:11)
[2016-09-18] MEDS: Temazepam 15 MG Cap PO PRN (20:11)
[2016-09-18] MEDS: amLODIPine 5 MG Tab PO SCH (20:15)
--- NOTE | 2016-09-19 07:41 | PCM.DCSUM1 ---
Discharge Summary - Hospital Course Free Text/Narrative:: 30 year old male who currently lives alone, presented after a failed suicide attempt. The patient tried to hang himself with an extension cord, the cord broke. There was no LOC, a CT of the neck appears to have no gross abnormalities; the patient however is complaining of a sore neck. There is no prior history of mental illness but he admits to feelings of depression and anxiety. He drinks alcohol daily, multiple drinks daily; consumption has increased heavily over the past 5 years to 4 bottles of vodka 1.75 per day, he will start having withdrawl symptoms if he does not drink for <24 hours Hospitalist service is consulted for admission. He will be admitted for psychiatric treatment/monitoring, there are no available beds in [place] for psychiatric patients. An alcohol and drug screen were requested. Etoh level 0.22; UDS negative. The patient has been admitted to the ICU as 1:1 monitored care. Patient was kept in ICU status, monitored closely. No airway compromise occurred. Substance abuse and Psychiatry were consulted. He was maintained on CIWA protocol with ativan, librium and suicide precautions with 1:1 care. Started on Prozac per Dr. Tran, Psychiatrist, recommendations. He has been committed and will be transferred via [employer] [facility] to the [facility] in [place] for further Psychiatric care. Bed availability delayed his transfer there. Triggers for his suicide attempt include employment issues, financial stressors , problems with roommates. He states he would not feel suicidal when sober and is remorseful for the attempt. - Discharge Data Discharge Date: 09/20/16 (admit date 09/12/16) Discharge Disposition: DC/Tfer to Inpt Rehab Fac 62 Condition: Good - Discharge Diagnosis/Problem(s) (1) Suicide attempt SNOMED Code(s): 95754160 ICD Code: T14.91 - SUICIDE ATTEMPT Status: Acute Priority: High Current Visit: Yes (2) Depression SNOMED Code(s): 54714162 ICD Code: F32.9 - MAJOR DEPRESSIVE DISORDER, SINGLE EPISODE, UNSPECIFIED Status: Acute Priority: High Current Visit: Yes Qualifiers: Depression Type: unspecified Qualified Code(s): F32.9 - Major depressive disorder, single episode, unspecified (3) Anxiety SNOMED Code(s): 73683491 ICD Code: F41.9 - ANXIETY DISORDER, UNSPECIFIED Status: Acute Priority: High Current Visit: Yes (4) EtOH dependence SNOMED Code(s): 66106088, 081355596 ICD Code: F10.20 - ALCOHOL DEPENDENCE, UNCOMPLICATED Status: Acute Priority: High Current Visit: Yes Qualifiers: Substance use status: with intoxication Complication of substance-induced condition: with unspecified complication Qualified Code(s): F10.229 - Alcohol dependence with intoxication, unspecified - Patient Summary/Data Operative Procedure(s) Performed: None Complications: None Consults: Consultations 09/13/16 06:00 Consult to Physician [CONS] Routine 09/13/16 09:00 Consult to Miter Operator [CONS] Routine 09/13/16 09:05 Consult to Spiritual Care [CONS] Routine 09/13/16 10:00 Consult to Physical Therapy [PT Evaluation and Treatment] [CONS] Routine 09/13/16 10:16 Consult for Substance Abuse [CONS] Routine Labs Pending at D/C: None Recommended Follow-up Testing/Procedures: Follow up with Substance abuse; AA upon discharge from inpatient rehab, [facility]. Establish care/follow up with a PCP upon discharge from inpatient rehab. Planned Operative Procedure(s) after DC: None Hospital Course: As above - Patient Instructions Diet: Usual Diet as Tolerated Activity: As Tolerated Driving: Do Not Drive Showering/Bathing: May Shower - Discharge Plan Prescriptions/Med Rec: ClonazePAM [KlonoPIN] 1 mg PO BID #1 tablet FLUoxetine [PROzac] 20 mg PO DAILY #30 cap LORazepam [Ativan] 1 mg PO Q4H PRN #1 tablet PRN Reason: Anxiety Nicotine [Habitrol] 21 mg TRDERM DAILY #30 patch QUEtiapine [SEROquel] 25 mg PO BID #60 tablet amLODIPine [Norvasc] 5 mg PO BEDTIME #30 tablet Home Medications: Home Meds Ibuprofen. 09/12/16 [History] FLUoxetine [PROzac] 20 mg PO DAILY #30 cap 09/19/16 [Rx] LORazepam [Ativan] 1 mg PO Q4H PRN #1 tablet 09/19/16 [Rx] Nicotine [Habitrol] 21 mg TRDERM DAILY #30 patch 09/19/16 [Rx] QUEtiapine [SEROquel] 25 mg PO BID #60 tablet 09/19/16 [Rx] amLODIPine [Norvasc] 5 mg PO BEDTIME #30 tablet 09/19/16 [Rx] ClonazePAM [KlonoPIN] 1 mg PO BID #1 tablet 09/20/16 [Rx] Patient Handouts: Smoking Cessation, Tips for Success, Bdel-gi-Odeh, Suicidal Feelings: How to Help Yourself, Alcohol Intoxication, Ousy-gi-Qgay, Finding Treatment for Addiction Forms: ED Department Discharge Referrals: PCP,None [Primary Care Provider] - - Discharge Summary/Plan Comment DC Time >30 min.: Yes (40 min) - General Info Date of Service: 09/20/16 Admission Dx/Problem (Free Text: Admission Diagnosis/Problem Admission Diagnosis/Problem Suicide by drug overdose Doing well; continues on suicide precautions and 1:1 Denies further suicidal ideations; feels "shaky", no nausea, no headache, no withdrawl symptoms otherwise. Denies c/o pain. Has been committed per Tim Lunsford L[facility]; awaiting bed at [facility] in [place] Functional Status: Reports: pain controlled, tolerating diet, ambulating, urinating. Denies: new symptoms - Review of Systems General: Reports: No Symptoms HEENT: Reports: no symptoms Pulmonary: Reports: no symptoms Cardiovascular: Reports: No Symptoms Gastrointestinal: Reports: No symptoms Genitourinary: Reports: no symptoms Musculoskeletal: Reports: no symptoms Skin: Reports: no symptoms Neurological: Reports: No Symptoms Psychiatric: Reports: no symptoms, anxiety - Patient Data Vitals - Most Recent: Last Vital Signs Temp 97.9 F 09/19/16 03:53 Pulse 61 09/19/16 03:53 Resp 18 09/19/16 03:53 BP 105/64 09/19/16 03:53 Pulse Ox 96 09/19/16 03:53 Weight - Most Recent: 175 lb 9.6 oz I&O - Last 24 hours: Intake & Output 09/18/16 09/19/16 09/19/16 22:59 06:59 14:59 Intake Total 690 1300 Output Total 3950 Balance 690 -2650 Med Orders - Current: Current Medications Acetaminophen (Tylenol Solution) 650 mg PO Q6H PRN PRN Reason: Pain (moderate 4-6) Last Admin: 09/15/16 15:18 Dose: 650 mg Amlodipine Besylate (Norvasc) 5 mg PO BEDTIME [facility] Last Admin: 09/18/16 20:15 Dose: 5 mg Benzocaine/Menthol (Cepacol Sore Throat) 2 lozenge MUCMEM 6XDAY PRN PRN Reason: Sore Throat Last Admin: 09/17/16 11:23 Dose: 2 lozenge Chlordiazepoxide HCl (Librium) 25 mg PO QID [facility] Last Admin: 09/18/16 20:11 Dose: 25 mg Clonidine HCl (Catapres) 0.1 mg PO Q12HR [facility] Last Admin: 09/18/16 20:14 Dose: 0.1 mg Fluoxetine HCl (Prozac) 20 mg PO DAILY [facility] Last Admin: 09/18/16 08:56 Dose: 20 mg Hydralazine HCl (Apresoline) 20 mg IVPUSH Q6H PRN PRN Reason: Hypertension Last Admin: 09/13/16 16:24 Dose: 20 mg Ibuprofen (Motrin) 600 mg PO Q8H PRN PRN Reason: Pain Last Admin: 09/16/16 20:15 Dose: 600 mg Lorazepam (Ativan) 1 mg IVPUSH Q8H PRN PRN Reason: Anxiety Last Admin: 09/18/16 09:10 Dose: 1 mg Lorazepam (Ativan) 1 mg PO Q4H PRN PRN Reason: Anxiety Last Admin: 09/18/16 17:22 Dose: 1 mg Lorazepam (Ativan) 1 mg IVPUSH Q4H PRN; Protocol PRN Reason: Withdrawal Symptoms Last Admin: 09/18/16 22:03 Dose: 1 mg Metoprolol Tartrate (Lopressor) 25 mg PO Q12HR [facility] Last Admin: 09/18/16 20:15 Dose: 25 mg Miscellaneous Information (Remove Patch) 1 ea TRDERM DAILY [facility] Last Admin: 09/18/16 08:59 Dose: 1 ea Nicotine (Habitrol) 21 mg TRDERM DAILY [facility] Last Admin: 09/18/16 08:56 Dose: 21 mg Pantoprazole Sodium (Protonix) 40 mg PO BEDTIME [facility] Last Admin: 09/18/16 20:11 Dose: 40 mg Quetiapine Fumarate (Seroquel) 25 mg PO BID [facility] Last Admin: 09/18/16 20:16 Dose: 25 mg Sodium Chloride (Saline Flush) 10 ml FLUSH ASDIRECTED PRN PRN Reason: Keep Vein Open Last Admin: 09/16/16 16:37 Dose: 10 ml Temazepam (Restoril) 15 mg PO BEDTIME PRN PRN Reason: Insomnia Last Admin: 09/18/16 20:11 Dose: 15 mg Discontinued Medications Chlordiazepoxide HCl (Librium) 15 mg PO TID [facility] Chlordiazepoxide HCl (Librium) 15 mg PO TID [facility] Last Admin: 09/14/16 08:44 Dose: 15 mg Chlordiazepoxide HCl (Librium) 15 mg PO ONETIME ONE Stop: 09/13/16 21:16 Last Admin: 09/13/16 21:08 Dose: 15 mg Clonidine HCl (Catapres) Confirm Administered Dose 0.1 mg .ROUTE .STK-MED ONE Stop: 09/13/16 18:33 Last Admin: 09/13/16 19:43 Dose: Not Given Lactated Ringer's (Ringers, Lactated) 1,000 mls @ 150 mls/hr IV ASDIRECTED [facility] Last Admin: 09/13/16 04:32 Dose: 150 mls/hr Magnesium Sulfate 2 gm/ Premix 50 mls @ 25 mls/hr IV ONETIME ONE Stop: 09/13/16 12:17 Last Admin: 09/13/16 12:27 Dose: 25 mls/hr Iopamidol (Isovue-300 (61%)) 80 ml IVPUSH ONETIME ONE Stop: 09/12/16 19:52 Last Admin: 09/12/16 20:09 Dose: 80 ml Ketorolac Tromethamine (Toradol) 60 mg IVPUSH ONETIME ONE Stop: 09/12/16 21:01 Last Admin: 09/12/16 21:51 Dose: 60 mg Ketorolac Tromethamine (Toradol) 30 mg IVPUSH Q6H [facility] Stop: 09/13/16 21:01 Last Admin: 09/13/16 20:56 Dose: 30 mg Ketorolac Tromethamine (Toradol) 60 mg IVPUSH ONETIME ONE Stop: 09/12/16 21:46 Last Admin: 09/12/16 22:01 Dose: Not Given Lorazepam (Ativan) 2 mg PO ONETIME ONE Stop: 09/13/16 09:07 Last Admin: 09/13/16 09:51 Dose: 2 mg Methylprednisolone Sodium Succinate (Solu-Medrol) 125 mg IVPUSH Q12H [facility] Last Admin: 09/14/16 08:46 Dose: 125 mg Metoprolol Tartrate (Lopressor) 25 mg PO ONETIME ONE Stop: 09/13/16 12:31 Last Admin: 09/13/16 12:30 Dose: 25 mg Nicotine (Habitrol) 14 mg TRDERM ONETIME ONE Stop: 09/12/16 20:02 Last Admin: 09/12/16 20:17 Dose: 14 mg Quetiapine Fumarate (Seroquel) 25 mg PO ONETIME ONE Stop: 09/13/16 09:05 Last Admin: 09/13/16 09:51 Dose: 25 mg Quetiapine Fumarate (Seroquel) 25 mg PO BEDTIME [facility] Last Admin: 09/15/16 20:10 Dose: 25 mg Sodium Chloride (Saline Flush) 10 ml FLUSH ONETIME PRN PRN Reason: IV FLUSH Last Admin: 09/12/16 20:09 Dose: 10 ml - Exam Quality Assessment: Reports: DVT prophylaxis General: Reports: alert, oriented, cooperative, no acute distress HEENT: Reports: Pupils equal, Pupils reactive, EOMI, Mucous membr. moist/pink Neck: Reports: supple Lungs: Reports: Clear to auscultation, Normal respiratory effort Cardiovascular: Reports: Regular Rate, Regular Rhythm Abdomen: Reports: bowel sounds present, soft, no tenderness, no distension (Male) Exam: Deferred Rectal (Males) Exam: Deferred Back Exam: Reports: normal inspection Extremities: Reports: no edema, no calf tenderness Skin: Reports: warm, dry, intact Neurological: Reports: no new focal deficit Psy/Mental Status: Reports: alert, normal affect, normal mood, anxious *Q Meaningful Use (DIS) - VTE *Q VTE Criteria *Q: - Stroke *Q Stroke Criteria *Q: - AMI *Q AMI Criteria *Q:
[2016-09-19] MEDS: Metoprolol Tartrate 25 MG Tab PO SCH ×2 (08:04→20:22)
[2016-09-19] MEDS: chlordiazePOXIDE 25 MG Cap PO SCH (08:04)
[2016-09-19] MEDS: QUEtiapine 25 MG Tab PO SCH ×2 (08:05→20:23)
[2016-09-19] MEDS: cloNIDine 0.1 MG Tab PO SCH (08:05)
[2016-09-19] MEDS: FLUoxetine 20 MG Cap PO SCH (08:06)
[2016-09-19] MEDS: Nicotine 21 MG/24 Hr Patch TRDERM SCH (08:06)
[2016-09-19] MEDS: LORazepam 1 MG Tab PO PRN ×3 (08:47→20:31)
--- NOTE | 2016-09-19 09:51 | PCM.PN ---
- General Info Date of Service: 09/19/16 Admission Dx/Problem (Free Text): Admission Diagnosis/Problem Admission Diagnosis/Problem Suicide by drug overdose Has been committed per Tim Lunsford LAC; leaves in am to [facility] in [place] Subjective Update: Follow Up Functional Status: Reports: pain controlled, tolerating diet, ambulating, urinating. Denies: new symptoms - Review of Systems General: Denies: Fever, Chills HEENT: Reports: no symptoms Pulmonary: Denies: shortness of breath Cardiovascular: Denies: Chest Pain, Palpitations Gastrointestinal: Denies: Abdominal pain, Nausea, Vomiting Genitourinary: Reports: no symptoms Musculoskeletal: Reports: no symptoms Skin: Reports: no symptoms Neurological: Denies: Confusion, Dizziness, Seizure, Difficulty Walking, Weakness Psychiatric: Denies: depression, anxiety, cravings, hallucinations, suicidal ideation, homicidal ideation Systems Review Comment:: No overnight or acute issues. He is doping relatively well. His CIWA score is 0. However he has been getting PRN Ativan 1mg po Q4 for anxiety. He is denies being suicidal or homocidal. He has been ambulating down the [place] with no issues. - Patient Data Vitals - most recent: Last Vital Signs Temp 36.6 C 09/19/16 08:06 Pulse 65 09/19/16 08:06 Resp 18 09/19/16 08:06 BP 117/70 09/19/16 08:06 Pulse Ox 99 09/19/16 08:06 Weight - most recent: 79.651 kg I&O - last 24 hours: Intake & Output 09/18/16 09/19/16 09/19/16 22:59 06:59 14:59 Intake Total 690 1300 Output Total 3950 Balance 690 -2650 Med Orders - Current: Current Medications Acetaminophen (Tylenol Solution) 650 mg PO Q6H PRN PRN Reason: Pain (moderate 4-6) Last Admin: 09/15/16 15:18 Dose: 650 mg Amlodipine Besylate (Norvasc) 5 mg PO BEDTIME [facility] Last Admin: 09/18/16 20:15 Dose: 5 mg Benzocaine/Menthol (Cepacol Sore Throat) 2 lozenge MUCMEM 6XDAY PRN PRN Reason: Sore Throat Last Admin: 09/17/16 11:23 Dose: 2 lozenge Chlordiazepoxide HCl (Librium) 25 mg PO QID [facility] Last Admin: 09/19/16 08:04 Dose: 25 mg Clonidine HCl (Catapres) 0.1 mg PO Q12HR [facility] Last Admin: 09/19/16 08:05 Dose: 0.1 mg Fluoxetine HCl (Prozac) 20 mg PO DAILY [facility] Last Admin: 09/19/16 08:06 Dose: 20 mg Hydralazine HCl (Apresoline) 20 mg IVPUSH Q6H PRN PRN Reason: Hypertension Last Admin: 09/13/16 16:24 Dose: 20 mg Ibuprofen (Motrin) 600 mg PO Q8H PRN PRN Reason: Pain Last Admin: 09/16/16 20:15 Dose: 600 mg Lorazepam (Ativan) 1 mg IVPUSH Q8H PRN PRN Reason: Anxiety Last Admin: 09/18/16 09:10 Dose: 1 mg Lorazepam (Ativan) 1 mg PO Q4H PRN PRN Reason: Anxiety Last Admin: 09/19/16 08:47 Dose: 1 mg Lorazepam (Ativan) 1 mg IVPUSH Q4H PRN; Protocol PRN Reason: Withdrawal Symptoms Last Admin: 09/18/16 22:03 Dose: 1 mg Metoprolol Tartrate (Lopressor) 25 mg PO Q12HR [facility] Last Admin: 09/19/16 08:04 Dose: 25 mg Miscellaneous Information (Remove Patch) 1 ea TRDERM DAILY [facility] Last Admin: 09/19/16 08:06 Dose: 1 ea Nicotine (Habitrol) 21 mg TRDERM DAILY [facility] Last Admin: 09/19/16 08:06 Dose: 21 mg Pantoprazole Sodium (Protonix) 40 mg PO BEDTIME [facility] Last Admin: 09/18/16 20:11 Dose: 40 mg Quetiapine Fumarate (Seroquel) 25 mg PO BID [facility] Last Admin: 09/19/16 08:05 Dose: 25 mg Sodium Chloride (Saline Flush) 10 ml FLUSH ASDIRECTED PRN PRN Reason: Keep Vein Open Last Admin: 09/16/16 16:37 Dose: 10 ml Temazepam (Restoril) 15 mg PO BEDTIME PRN PRN Reason: Insomnia Last Admin: 09/18/16 20:11 Dose: 15 mg Discontinued Medications Chlordiazepoxide HCl (Librium) 15 mg PO TID [facility] Chlordiazepoxide HCl (Librium) 15 mg PO TID [facility] Last Admin: 09/14/16 08:44 Dose: 15 mg Chlordiazepoxide HCl (Librium) 15 mg PO ONETIME ONE Stop: 09/13/16 21:16 Last Admin: 09/13/16 21:08 Dose: 15 mg Clonidine HCl (Catapres) Confirm Administered Dose 0.1 mg .ROUTE .STK-MED ONE Stop: 09/13/16 18:33 Last Admin: 09/13/16 19:43 Dose: Not Given Lactated Ringer's (Ringers, Lactated) 1,000 mls @ 150 mls/hr IV ASDIRECTED [facility] Last Admin: 09/13/16 04:32 Dose: 150 mls/hr Magnesium Sulfate 2 gm/ Premix 50 mls @ 25 mls/hr IV ONETIME ONE Stop: 09/13/16 12:17 Last Admin: 09/13/16 12:27 Dose: 25 mls/hr Iopamidol (Isovue-300 (61%)) 80 ml IVPUSH ONETIME ONE Stop: 09/12/16 19:52 Last Admin: 09/12/16 20:09 Dose: 80 ml Ketorolac Tromethamine (Toradol) 60 mg IVPUSH ONETIME ONE Stop: 09/12/16 21:01 Last Admin: 09/12/16 21:51 Dose: 60 mg Ketorolac Tromethamine (Toradol) 30 mg IVPUSH Q6H [facility] Stop: 09/13/16 21:01 Last Admin: 09/13/16 20:56 Dose: 30 mg Ketorolac Tromethamine (Toradol) 60 mg IVPUSH ONETIME ONE Stop: 09/12/16 21:46 Last Admin: 09/12/16 22:01 Dose: Not Given Lorazepam (Ativan) 2 mg PO ONETIME ONE Stop: 09/13/16 09:07 Last Admin: 09/13/16 09:51 Dose: 2 mg Methylprednisolone Sodium Succinate (Solu-Medrol) 125 mg IVPUSH Q12H [facility] Last Admin: 09/14/16 08:46 Dose: 125 mg Metoprolol Tartrate (Lopressor) 25 mg PO ONETIME ONE Stop: 09/13/16 12:31 Last Admin: 09/13/16 12:30 Dose: 25 mg Nicotine (Habitrol) 14 mg TRDERM ONETIME ONE Stop: 09/12/16 20:02 Last Admin: 09/12/16 20:17 Dose: 14 mg Quetiapine Fumarate (Seroquel) 25 mg PO ONETIME ONE Stop: 09/13/16 09:05 Last Admin: 09/13/16 09:51 Dose: 25 mg Quetiapine Fumarate (Seroquel) 25 mg PO BEDTIME [facility] Last Admin: 09/15/16 20:10 Dose: 25 mg Sodium Chloride (Saline Flush) 10 ml FLUSH ONETIME PRN PRN Reason: IV FLUSH Last Admin: 09/12/16 20:09 Dose: 10 ml - Exam General: alert, oriented, cooperative, no acute distress HEENT: Pupils equal, Pupils reactive, EOMI, Mucous membr. moist/pink Neck: supple, trachea midline Lungs: Clear to auscultation, Normal respiratory effort Cardiovascular: Regular Rate, Regular Rhythm Abdomen: bowel sounds present, soft, no tenderness, no distension (Male) Exam: Deferred Back Exam: normal inspection, decreased range of motion Extremities: no edema, normal pulses, no tenderness/swelling, no clubbing, no cyanosis, no calf tenderness Skin: warm, intact Neurological: no new focal deficit Psy/Mental Status: alert, normal affect, normal mood. No: anxious, depressed, agitated, suicidal ideation, homicidal ideation, hallucinations, withdrawal symptoms - Problem List Review Problem List Initiated/Reviewed/Updated: Yes - Assessment Assessment:: Impression: Depression/Anxiety - On Seroquel 25 mg po BID - Continue PRN Ativan for acute attack - Will start Klonopin 1 mg po BID for maintenance Suicide attempt - Unsuccessful hanging without LOC - CT of neck without signs of trauma ETOH withdrawal, decrease tremors with current regimen - CIWA score is 0 - D/c CIWA protocol Tobacco dependence - On Nicotine patch daily Plan: Cont with suicide precautions and 1:1 care D/c CIWA Protocol Involuntary commitment; awaiting bed/placement at [facility] in [place] DVT/GI prophylaxis Unable to leave today due to transportation issue Transfer to [place] in AM LOS>96 hours for placement at [facility] - Plan Plan:: Agree with plan of care
[2016-09-19] MEDS: LORazepam 2 MG/ML MDV IVPUSH PRN (11:41)
[2016-09-19] MEDS: ClonazePAM 1 MG Tab PO SCH (20:22)
[2016-09-19] MEDS: amLODIPine 5 MG Tab PO SCH (20:22)
[2016-09-19] MEDS: Pantoprazole 40 MG Tab.CR PO SCH (20:23)
[2016-09-19] MEDS: Temazepam 15 MG Cap PO PRN (20:24)
[2016-09-20] MEDS: LORazepam 1 MG Tab PO PRN ×3 (03:16→12:51)
[2016-09-20 07:32] VITALS: BP 117/72
[2016-09-20] MEDS: Nicotine 21 MG/24 Hr Patch TRDERM SCH (08:11)
[2016-09-20] MEDS: FLUoxetine 20 MG Cap PO SCH (08:11)
[2016-09-20] MEDS: ClonazePAM 1 MG Tab PO SCH (08:11)
[2016-09-20] MEDS: QUEtiapine 25 MG Tab PO SCH (08:11)
[2016-09-20] MEDS: Metoprolol Tartrate 25 MG Tab PO SCH (08:11)
== END 2016-09-20 13:26 | DRG 914 ==
LOC: JD.ED 17:51 → JD.ICU 19:44 → JD.MS 09-16 20:59
PROVIDERS: ADMIT Internal Medicine Cardiovascular Disease; ATTEND Internal Medicine Cardiovascular Disease
DX: T14.91 Suicide attempt (principal); F10.239 Alcohol dependence with withdrawal, unspecified; S10.90XA Unspecified superficial injury of unspecified part of neck, initial encounter; X83.8XXA Intentional self-harm by other specified means, initial encounter; F32.9 Major depressive disorder, single episode, unspecified; F41.9 Anxiety disorder, unspecified; I10 Essential (primary) hypertension; F17.200 Nicotine dependence, unspecified, uncomplicated; Y90.1 Blood alcohol level of 20-39 mg/100 ml
CPT/HCPCS: 36415; 70491; 70491-26; 71020; 71020-26; 80048; 80053; 80061; 80306; 81001; 83735; 84443; 85025; 85027; 97161-GP; 99232; 99239; 99284; 99285-25; A9270-GY; G0480; J0360; J1885; J2060; J2930; J3475; J7050; J7120; Q9967